=== PATIENT | female | born 1945 | race Caucasian/White ===

== ENCOUNTER 2016-09-02 07:02 | Day surgery (SDC) | payer MEDICARE, BC ==
[~2016-09-02 07:02] MED LIST: Bupivacaine 0.25% 30 ML SDV ONE; Lactated Ringers 1,000 ML IV SCH; Lidocaine 1% 30 ML SDV ONE; Lidocaine 1%/Sod Bicarbonate in NS 8.4% 1 ML Syringe PRN; Sodium Chloride 0.9% 10 ML Syringe FLUSH PRN
--- NOTE | 2016-09-02 07:23 | PCM.PREANE ---
Preanesthetic Assessment - ANESTHESIA/TRANSFUSION/FAMILY HX Anesthesia/Transfusion History: No Prior Transfusion(s), Prior Anesthesia (no problems) Family History of Anesthesia Reaction: No - REVIEW OF SYSTEMS Constitutional: Reports: no symptoms ANIMAL CYTOLOGIST: Reports: no symptoms Respiratory: Reports: no symptoms Cardiovascular: Reports: no symptoms GI: Reports: no symptoms Other: Reports: none - PHYSICAL ASSESSMENT HR: 73 O2 Sat by Pulse Oximetry: 98 RR: 16 BP: 123/65 Temp: 36.5 C Height: 1.65 m Weight: 52.617 kg NPO Status Date: 09/01/16 NPO Status Time: 00:00 ASA Class: 2 Mental Status: alert & oriented x3 Dentition: Reports: partial Thyro-Mental Finger Breadths: 3 Mouth Opening Finger Breadths: 3 ROM/Head Extension: full Respiratory Status: lungs clear to auscultation bilaterally Cardiovascular Status: regular rate & rhythm, normal S1, S2, no murmur, blood pressure WNL - ALLERGIES Allergies/Adverse Reactions: Allergies Allergy/AdvReac Type Severity Reaction Status Date / Time acetaminophen [From NyQuil] AdvReac Shaking Verified 09/01/16 16:04 amoxicillin [From Augmentin] AdvReac Nausea and Verified 09/01/16 16:04 Vomiting clavulanic acid AdvReac Nausea and Verified 09/01/16 16:04 [From Augmentin] Vomiting dextromethorphan AdvReac Shaking Verified 09/01/16 16:04 [From NyQuil] doxylamine [From NyQuil] AdvReac Shaking Verified 09/01/16 16:04 pseudoephedrine [From NyQuil] AdvReac Shaking Verified 09/01/16 16:04 - BLOOD Blood Available: No Product(s) Available: None - ANESTHESIA PLAN Preop Beta Gagandeep: No Anesthesia Type Planned: MAC - ACKNOWLEDGEMENTS Pt an appropriate candidate for the planned anesthesia: Yes Alternatives and risks of anesthesia discussed w pt/guardian: Yes Pt/Guardian understands and agree with anesthesia plan: Yes PreAnesthesia Questionnaire HEENT History: Reports: Allergic rhinitis, Impaired vision, Other (see below) Other HEENT History: wears glasses, has partials Cardiovascular History: Reports: None Respiratory History: Reports: None Gastrointestinal History: Reports: GERD Other Gastrointestinal History: Sirisha 1996 - evel. 7" Genitourinary History: Reports: None ANTENNA RIGGER History: Reports: None Musculoskeletal History: Reports: Back pain, chronic, Neck pain, chronic, Osteoarthritis Neurological History: Reports: Migraines Psychiatric History: Reports: None Endocrine/Metabolic History: Reports: None Hematologic History: Reports: None Immunologic History: Reports: None Oncologic (Cancer) History: Reports: Pancreatic - Past Surgical History Head Surgeries/Procedures: Reports: None HEENT Surgical History: Reports: Cataract surgery GI Surgical History: Reports: Appendectomy, Colonoscopy Female Surgical History: Reports: Hysterectomy Musculoskeletal Surgical History: Reports: Other (see below) Other Musculoskeletal Surgeries/Procedures:: left foot surgery with hardware, rods to back, trigger finger procedure - SUBSTANCE USE Smoking Status *Q: Former Smoker Tobacco Use Within Last Twelve Months: No Second Hand Smoke Exposure: No Recreational Drug Use History: No - HOME MEDS Home Medications: Home Meds Amylase/Lipase/Protease [Zenpep DR 10,000 Unit] 1 cap PO TID 11/13/14 [History] Omeprazole 20 mg PO BID 11/13/14 [History] SUMAtriptan Succinate [Imitrex] 1 tab PO ASDIRECTED PRN 11/14/14 [History] Cholecalciferol (Vitamin D3) [Vitamin D3] 1,000 units PO DAILY 05/12/16 [History ] Ranitidine [Zantac] 1 tab PO BEDTIME 09/01/16 [History] Hydrocodone/Acetaminophen [[place] 5-325 Tablet] 1 - 2 each PO Q6H PRN #20 tablet 09/02/16 [Rx] - CURRENT (IN HOUSE) MEDS Current Meds: Current Medications Lactated Ringer's (Ringers, Lactated) 1,000 mls @ 125 mls/hr IV ASDIRECTED CATIE Stop: 09/02/16 23:00 Lidocaine/Sodium Bicarbonate (Buffered Lidocaine 1% In Ns 8.4%) 0.25 ml .XX ONETIME PRN PRN Reason: Prior to IV Start Stop: 09/02/16 18:00 Sodium Chloride (Saline Flush) 10 ml FLUSH ASDIRECTED PRN PRN Reason: Keep Vein Open Stop: 09/02/16 18:00 Discontinued Medications Bupivacaine HCl (Marcaine 0.25%) Confirm Administered Dose 30 ml .ROUTE .STK- MED ONE Stop: 09/02/16 06:55 Lidocaine HCl (Xylocaine-Mpf 1%) Confirm Administered Dose 30 ml .ROUTE .[facility] [facility]- MED ONE Stop: 09/02/16 06:55
[2016-09-02] MEDS ORDERED: Propofol 200 MG/20 ML SDV ONE (07:34)
[2016-09-02] MEDS ORDERED: Lidocaine 1% 2 ML SDV ONE (07:34)
[2016-09-02] MEDS ORDERED: fentaNYL 100 MCG/2 ML SDV ONE (07:36)
[2016-09-02 08:47] VITALS: BP 120/63
--- NOTE | 2016-09-13 22:33 | PCM.OPNOTE ---
- General Post-Op/Procedure Note Date of Surgery/Procedure: 09/02/16 Operative Procedure(s): left long finger a1 sravan release Pre Op Diagnosis: left long finger stenosing tenosynovitis Post-Op Diagnosis: Same Anesthesia Technique: Local, MAC Primary Surgeon: Fan Henao Anesthesia Provider: Barber Dominguez Track Repair Worker: Arianna Hill EBL in mLs: 5 Complications: None Condition: Good
--- NOTE | 2016-09-13 23:08 | OR ---
DATE OF OPERATION: 09/02/2016 SURGEON: Fan Henao MD OPERATION PERFORMED: Left long finger A1 sravan release. PREOPERATIVE DIAGNOSIS: Left long finger stenosing tenosynovitis. POSTOPERATIVE DIAGNOSIS: Left long finger stenosing tenosynovitis. ANESTHESIA: Technique; local MAC. ANESTHESIA PROVIDER: Barber Dominguez CRNA LOAN SPECIALIST: Arianna Hill PA-C. ESTIMATED BLOOD LOSS: Less than 5 mL. COMPLICATIONS: None. CONDITION: Stable. DESCRIPTION OF PROCEDURE: The patient was identified in the preop holding area. Proper site was marked and identified by the surgeon. The patient was taken back to the operating theater where after adequate anesthesia, the patient's left upper extremity was sterilely prepped and draped in the usual sterile fashion. OR wide time-out was performed. Antibiotics were not indications for soft tissue hand procedure. At this time, left upper extremity was exsanguinated with Esmarch which was used as a tourniquet on the forearm. A 0.25% Marcaine and 1% lidocaine without epinephrine was then used at the incisional site over the MCP joint of the long finger left hand. Transverse incision was made. Blunt dissection was taken down to the A1 sravan. Campo blade was used for resection of the A1 rsavan, was found to be a both release proximally and distally. There was good excursion of the tendon from the wound bed with no tenolysis at this time. The patient's finger was then moved back and forth, there was no visible or audible triggering. At this time adequate saline was irrigated through the wound. A 4- 0 nylon simple suture was used for closure of the skin. The patient had a sterile soft dressing applied and sent to the PACU in stable condition. MMODAL /[id number]
== END 2016-09-02 09:21 | disposition home or self-care (01) ==
LOC: JD.SDS 07:02
PROVIDERS: ATTEND Orthopaedic Surgery
PROC: 0LN80ZZ Release Left Hand Tendon, Open Approach (ICD-10-PCS; principal; 2016-09-02)
DX: M65.842 Other synovitis and tenosynovitis, left hand (principal); M19.90 Unspecified osteoarthritis, unspecified site; K21.9 Gastro-esophageal reflux disease without esophagitis; Z88.8 Allergy status to other drugs, medicaments and biological substances; Z88.6 Allergy status to analgesic agent; Z88.0 Allergy status to penicillin; Z79.899 Other long term (current) drug therapy; Z98.49 Cataract extraction status, unspecified eye; Z90.710 Acquired absence of both cervix and uterus; Z90.49 Acquired absence of other specified parts of digestive tract; Z98.890 Other specified postprocedural states; Z87.891 Personal history of nicotine dependence
CPT/HCPCS: 26055; J3010; J7120; 01810; J2704; J3490

== ENCOUNTER 2017-04-28 06:26 | Day surgery (SDC) | payer MEDICARE, BC ==
[~2017-04-28 06:26] MED LIST changes: -Bupivacaine 0.25% 30 ML SDV ONE; -Lidocaine 1% 30 ML SDV ONE; +Lidocaine 1%/Sod Bicarbonate in NS 8.4% 1 ML Syringe IV PRN; -Lidocaine 1%/Sod Bicarbonate in NS 8.4% 1 ML Syringe PRN
[2017-04-28] MEDS ORDERED: Bupivacaine 0.25% 30 ML SDV ONE (06:50)
[2017-04-28] MEDS ORDERED: Lidocaine 1% 30 ML SDV ONE (06:50)
[2017-04-28] MEDS ORDERED: Triamcinolone Acetonide 40 MG/ML 1 ML MDV ONE (06:57)
--- NOTE | 2017-04-28 07:01 | PCM.PREANE ---
Preanesthetic Assessment - Anesthesia/Transfusion/Family Hx Anesthesia History: Prior Anesthesia Without Reaction Family History of Anesthesia Reaction: No Transfusion History: No Prior Transfusion(s) - Review of Systems General: No Symptoms Pulmonary: No Symptoms Cardiovascular: No Symptoms Gastrointestinal: No Symptoms Neurological: No Symptoms Other: Reports: Easy Bruising, Liver Problems (no pancreas) - Physical Assessment NPO Status Date: 04/27/17 NPO Status Time: 21:00 Pulse: 84 O2 Sat by Pulse Oximetry: 97 Respiratory Rate: 16 Blood Pressure: 123/76 Temperature: 98.3 F Height: 5 ft 4 in Weight: 54 kg ASA Class: 2 Mental Status: Alert & Oriented x3 Airway Class: Mallampati = 2 Dentition: Reports: Partial (glued in) Thyro-Mental Finger Breadths: 3 Mouth Opening Finger Breadths: 3 ROM/Head Extension: Full Lungs: Clear to Auscultation, Normal Respiratory Effort Cardiovascular: Regular Rate, Regular Rhythm - Allergies Allergies/Adverse Reactions: Allergies Allergy/AdvReac Type Severity Reaction Status Date / Time acetaminophen [From NyQuil] AdvReac Shaking Verified 04/27/17 13:04 amoxicillin [From Augmentin] AdvReac Nausea and Verified 04/27/17 13:04 Vomiting clavulanic acid AdvReac Nausea and Verified 04/27/17 13:04 [From Augmentin] Vomiting dextromethorphan AdvReac Shaking Verified 04/27/17 13:04 [From NyQuil] doxylamine [From NyQuil] AdvReac Shaking Verified 04/27/17 13:04 pseudoephedrine [From NyQuil] AdvReac Shaking Verified 04/27/17 13:04 - Blood Blood Available: No - Acknowledgements Anesthesia Type Planned: MAC Pt an Appropriate Candidate for the Planned Anesthesia: Yes Alternatives and Risks of Anesthesia Discussed w Pt/Guardian: Yes Pt/Guardian Understands and Agrees with Anesthesia Plan: Yes PreAnesthesia Questionnaire HEENT History: Reports: Allergic Rhinitis, Impaired Vision, Other (See Below) Other HEENT History: wears glasses, has partials, right ear impacted cerumen Cardiovascular History: Reports: None Respiratory History: Reports: None Gastrointestinal History: Reports: GERD Other Gastrointestinal History: Whipple 1996, pancreas resection Genitourinary History: Reports: None CIGARETTE LIGHTER REPAIRER History: Reports: None Musculoskeletal History: Reports: Back Pain, Chronic (none now), Neck Pain, Chronic, Osteoarthritis Neurological History: Reports: Migraines Psychiatric History: Reports: None Endocrine/Metabolic History: Reports: None Hematologic History: Reports: None Immunologic History: Reports: None Oncologic (Cancer) History: Reports: Pancreatic, Other (See Below) Other Oncologic History: ampula of vater cancer Dermatologic History: Reports: Other (See Below) Other Dermatologic History: actinic keratosis - Past Surgical History Head Surgeries/Procedures: Reports: None HEENT Surgical History: Reports: None, Cataract Surgery Cardiovascular Surgical History: Reports: None Respiratory Surgical History: Reports: None GI Surgical History: Reports: Appendectomy, Colonoscopy, Other (See Below) ( sakshi 1996) Female Surgical History: Reports: Hysterectomy Endocrine Surgical History: Reports: None Neurological Surgical History: Reports: None Musculoskeletal Surgical History: Reports: Other (See Below) Other Musculoskeletal Surgeries/Procedures:: left foot surgery with hardware, rods to back, trigger finger procedure Oncologic Surgical History: Reports: None Dermatological Surgical History: Reports: None - SUBSTANCE USE Smoking Status *Q: Former Smoker (quit 1996) Tobacco Use Within Last Twelve Months: No Second Hand Smoke Exposure: No Days Per Week of Alcohol Use: 0 Recreational Drug Use History: No - HOME MEDS Home Medications: Home Meds Amylase/Lipase/Protease [Zenpep DR 10,000 Unit] 1 cap PO TID 11/13/14 [History] Omeprazole 20 mg PO BID 11/13/14 [History] SUMAtriptan Succinate [Imitrex] 1 tab PO ASDIRECTED PRN 11/14/14 [History] Ranitidine [Zantac] 1 tab PO BEDTIME 09/01/16 [History] Ferrous Sulfate [Iron] 325 mg PO DAILY 04/27/17 [History] Multivitamin [Zoo Chews] 1 tab PO DAILY 04/27/17 [History] - CURRENT (IN HOUSE) MEDS Current Meds: Current Medications Lactated Ringer's (Ringers, Lactated) 1,000 mls @ 125 mls/hr IV ASDIRECTED CATIE Lidocaine/Sodium Bicarbonate (Buffered Lidocaine 1% In Ns 8.4%) 0.25 ml IV ONETIME PRN PRN Reason: Prior to IV Start Sodium Chloride (Saline Flush) 10 ml FLUSH ASDIRECTED PRN PRN Reason: Keep Vein Open Discontinued Medications Fentanyl (Sublimaze) Confirm Administered Dose 100 mcg .ROUTE .STK-MED ONE Stop: 04/28/17 07:07 Lidocaine HCl (Xylocaine-Mpf 1%) Confirm Administered Dose 4 mls @ as directed .ROUTE .STK-MED ONE Stop: 04/28/17 07:06 Propofol (Diprivan 20 Ml) Confirm Administered Dose 200 mg .ROUTE .STK-MED ONE Stop: 04/28/17 07:07
[2017-04-28] MEDS ORDERED: Lidocaine 1% 4 ML ONE (07:05)
[2017-04-28] MEDS ORDERED: fentaNYL 100 MCG/2 ML SDV ONE (07:06)
[2017-04-28] MEDS ORDERED: Propofol 200 MG/20 ML SDV ONE (07:06)
[2017-04-28] MEDS ORDERED: Ondansetron 4 MG/2 ML SDV IVPUSH PRN (07:20)
[2017-04-28] MEDS ORDERED: Lidocaine 1%/Sod Bicarbonate in NS 8.4% 1 ML Syringe PRN (07:27)
--- NOTE | 2017-04-28 07:56 | PCM48HPAN ---
Post Anesthesia Note - EVALUATION WITHIN 48HRS OF ANESTHETIC Vital Signs in Normal Range: Yes Patient Participated in Evaluation: Yes Respiratory Function Stable: Yes Airway Patent: Yes Cardiovascular Function Stable: Yes Hydration Status Stable: Yes Pain Control Satisfactory: Yes Nausea and Vomiting Control Satisfactory: Yes Mental Status Recovered: Yes
[2017-04-28 07:58] VITALS: BP 112/65
--- NOTE | 2017-05-09 11:38 | PCM.OPNOTE ---
- General Post-Op/Procedure Note Date of Surgery/Procedure: 04/28/17 Operative Procedure(s): left ringer finger a1 sravan release and left first carpometacarpal joint injection Pre Op Diagnosis: left ring finger stensoing tenosynovitis and left basal thumb joint arthritis Post-Op Diagnosis: Same Anesthesia Technique: Local, MAC Primary Surgeon: Fan Henao Anesthesia Provider: Tangela Torres Conveyor Attendant: Arianna Hill in mLs: 5 Complications: None Condition: Good
--- NOTE | 2017-05-09 12:40 | OR ---
DATE OF OPERATION: 04/28/2017 SURGEON: Fan Henao MD OPERATION PERFORMED: 1. Left ring finger A1 sravan release. 2. Left 1st carpometacarpal joint injection. PREOPERATIVE DIAGNOSIS: 1. Left ring finger stenosing tenosynovitis. 2. Left basal thumb joint arthritis. POSTOPERATIVE DIAGNOSIS: 1. Left ring finger stenosing tenosynovitis. 2. Left basal thumb joint arthritis. ANESTHESIA: Local MAC. ANESTHESIA PROVIDER: Tangela Torres CRNA MOLDING PROCESS TECHNICIAN: Arianna Hill PA-C. ESTIMATED BLOOD LOSS: Less than 5 mL. COMPLICATIONS: None. CONDITION: Stable. DESCRIPTION OF PROCEDURE: The patient was identified in the preop holding area. Proper site was marked and identified by the surgeon. The patient was taken back to the operating theater where, after adequate anesthesia, the patient received IV Ancef, and then the left upper extremity was sterilely prepped and draped in the usual sterile fashion. OR time-out was performed. At this time, the left upper extremity was exsanguinated with the use of an Esmarch, and Esmarch was then used on the forearm as a tourniquet. At this time, a transverse incision was made over the A1 sravan. Blunt dissection was taken down to the A1 sravan over the left ring finger after it was adequately anesthetized with 1% lidocaine without epinephrine and 0.25% Marcaine without epinephrine. Once it was identified, Ragnell retractors were placed to the radial and ulnar sides to protect the neurovascular bundles. A Benzie blade was used for resection of the A1 sravan under direct visualization, and there was noted to be fraying of the A1 sravan both proximally and distally. At this time, the tendon was brought through the wound bed. There was noted to be no adhesions to the tendon. At this time, adequate saline was irrigated through the wound. 4-0 nylon simple suture was used for closure of the skin. Next, under direct visualization, 1 mL of 40 mg Kenalog and 1 mL of 0.25% Marcaine were injected at the 1st CMC joint. The patient tolerated this procedure well as well and sent to the PACU in stable condition with a sterile soft dressing. MMODAL /[id number]
== END 2017-04-28 08:47 | disposition home or self-care (01) ==
LOC: JD.SDS 06:26
PROVIDERS: ATTEND Orthopaedic Surgery
DX: M65.342 Trigger finger, left ring finger (principal); M18.9 Osteoarthritis of first carpometacarpal joint, unspecified; K21.9 Gastro-esophageal reflux disease without esophagitis; G43.909 Migraine, unspecified, not intractable, without status migrainosus; M81.0 Age-related osteoporosis without current pathological fracture; G89.29 Other chronic pain; M54.2 Cervicalgia; M53.3 Sacrococcygeal disorders, not elsewhere classified; Z87.891 Personal history of nicotine dependence; Z85.07 Personal history of malignant neoplasm of pancreas; Z80.0 Family history of malignant neoplasm of digestive organs; Z80.3 Family history of malignant neoplasm of breast; Z88.1 Allergy status to other antibiotic agents; Z88.0 Allergy status to penicillin; Z88.8 Allergy status to other drugs, medicaments and biological substances; Z79.899 Other long term (current) drug therapy; Z90.710 Acquired absence of both cervix and uterus; Z90.410 Acquired total absence of pancreas; Z90.49 Acquired absence of other specified parts of digestive tract; Z98.890 Other specified postprocedural states
CPT/HCPCS: 20600; 26055; 36415; 80048; J3010; J3301; J3490; J7120; 01810; J2704

== ENCOUNTER 2018-07-17 06:16 | Inpatient (IN) | payer MEDICARE, BC ==
[~2018-07-17 06:16] MED LIST changes: +Acetaminophen 325 MG Tab PO ONE; -Lactated Ringers 1,000 ML IV SCH; +Lidocaine 1%/Sod Bicarbonate in NS 8.4% 1 ML Syringe IDERM PRN; -Lidocaine 1%/Sod Bicarbonate in NS 8.4% 1 ML Syringe IV PRN; +Pregabalin 25 MG Cap PO ONE; +oxyCODONE ER 10 MG TAB.ER PO ONE
[2018-07-17] MEDS ORDERED: Morphine 8 MG, EPINEPHrine 0.3 MG, Cefuroxime 750 MG, Ketorolac 30 MG, Sodium Chloride ... ONE ×5 (06:40)
[2018-07-17] MEDS ORDERED: Cyclobenzaprine 10 MG Tab PO PRN (06:40)
[2018-07-17] MEDS ORDERED: Sennosides 8.6 MG Tab PO PRN (06:41)
[2018-07-17] MEDS ORDERED: Magnesium Hydroxide 400 MG/5 ML Susp 30 ML Cup PO PRN (06:41)
[2018-07-17] MEDS ORDERED: Bisacodyl 5 MG Tab PO PRN (06:41)
[2018-07-17] MEDS ORDERED: Morphine 2 MG/ML Syringe IVPUSH PRN (06:41)
[2018-07-17] MEDS ORDERED: Naloxone 0.4 MG/ML SDV IVPUSH PRN (06:41)
[2018-07-17] MEDS: Lactated Ringers 1,000 ML IV SCH ×2 (06:50→11:05)
[2018-07-17] MEDS ORDERED: Lidocaine 1% 4 ML ONE (07:09)
[2018-07-17] MEDS ORDERED: ceFAZolin 1 GM Vial ONE (07:09)
[2018-07-17] MEDS ORDERED: Dexamethasone 4 MG/ML SDV ONE (07:09)
[2018-07-17] MEDS ORDERED: Lactated Ringers 1,000 ML ONE (07:09)
[2018-07-17] MEDS ORDERED: Midazolam 1 MG/ML 2 ML SDV ONE (07:10)
[2018-07-17] MEDS ORDERED: Propofol 200 MG/20 ML SDV ONE (07:10)
[2018-07-17] MEDS ORDERED: fentaNYL 250 MCG/5 ML SDV ONE (07:10)
[2018-07-17] MEDS ORDERED: Lidocaine 1% 2 ML ONE (07:16)
[2018-07-17] MEDS ORDERED: Ropivacaine 0.5% 5 MG/ML 30 ML SDV ONE (07:18)
[2018-07-17] MEDS ORDERED: EPINEPHrine 1 MG/ML SDV ONE (07:18)
[2018-07-17] MEDS: Iodine/Sodium Iodide 2% Tincture 30 ML Bottle ONE ×2 (08:46→09:27)
[2018-07-17] MEDS: ceFAZolin 1 GM Vial ONE ×2 (08:47→09:30)
[2018-07-17] MEDS: Vancomycin 1 GM SDV ONE ×2 (08:49→09:33)
[2018-07-17] MEDS ORDERED: ePHEDrine/Normal Saline 25 MG/5 ML Syringe ONE (09:05)
[2018-07-17] MEDS ORDERED: Phenylephrine/Normal Saline 100 MCG/ML 10 ML Syringe ONE (09:05)
--- NOTE | 2018-07-17 09:18 | PCM.PREANE ---
Preanesthetic Assessment - Anesthesia/Transfusion/Family Hx Anesthesia History: Prior Anesthesia Reaction Type of Anesthesia Reaction: Other (see below) (Post operative migraines) Family History of Anesthesia Reaction: No Transfusion History: No Prior Transfusion(s) - Review of Systems General: No Symptoms Pulmonary: No Symptoms Cardiovascular: No Symptoms Gastrointestinal: Other (GERD, controlled with her medicaitons. No sympotoms today. ) Neurological: Headache (Migraines, triggered by surgery in the past. ) Other: Reports: None - Physical Assessment NPO Status Date: 07/16/18 NPO Status Time: 21:00 O2 Sat by Pulse Oximetry: 97 Respiratory Rate: 16 Vital Signs: Last Vital Signs Temp 36.4 C 07/17/18 06:30 Pulse 75 07/17/18 06:30 Resp 16 07/17/18 06:30 BP 127/75 07/17/18 06:30 Pulse Ox 97 07/17/18 06:30 Height: 1.63 m Weight: 52.163 kg ASA Class: 2 Mental Status: Alert & Oriented x3 Airway Class: Mallampati = 1 Dentition: Reports: Partial (Upper and lower), Caries Thyro-Mental Finger Breadths: 3 Mouth Opening Finger Breadths: 3 ROM/Head Extension: Full Lungs: Clear to Auscultation, Normal Respiratory Effort Cardiovascular: Regular Rate, Regular Rhythm - Allergies Allergies/Adverse Reactions: Allergies Allergy/AdvReac Type Severity Reaction Status Date / Time amoxicillin [From Augmentin] AdvReac Nausea and Verified 07/14/18 15:09 Vomiting clavulanic acid AdvReac Nausea and Verified 07/14/18 15:09 [From Augmentin] Vomiting - Acknowledgements Anesthesia Type Planned: General Anesthesia, Regional Block Pt an Appropriate Candidate for the Planned Anesthesia: Yes Alternatives and Risks of Anesthesia Discussed w Pt/Guardian: Yes Pt/Guardian Understands and Agrees with Anesthesia Plan: Yes PreAnesthesia Questionnaire HEENT History: Reports: Allergic Rhinitis, Impaired Vision, Other (See Below) Other HEENT History: wears glasses, has partials Cardiovascular History: Reports: None Respiratory History: Reports: None Gastrointestinal History: Reports: GERD Other Gastrointestinal 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 Genitourinary History: Reports: None APPLICATIONS SUPPORT LEAD History: Reports: None Musculoskeletal History: Reports: Back Pain, Chronic, Neck Pain, Chronic, Osteoarthritis, Osteoporosis Neurological History: Reports: Migraines Psychiatric History: Reports: None Endocrine/Metabolic History: Reports: None, Other (See Below) Other Endocrine/Metabolic History: hypoglycemia Hematologic History: Reports: None Immunologic History: Reports: None Oncologic (Cancer) History: Reports: Pancreatic Other Oncologic History: ampula of vater cancer Dermatologic History: Reports: Other (See Below) Other Dermatologic History: actinic keratosis - Past Surgical History Head Surgeries/Procedures: Reports: None HEENT Surgical History: Reports: Cataract Surgery Cardiovascular Surgical History: Reports: None Respiratory Surgical History: Reports: None GI Surgical History: Reports: Appendectomy, Colonoscopy, EGD, Other (See Below) Female Surgical History: Reports: Hysterectomy Male Surgical History: Reports: None Endocrine Surgical History: Reports: None Neurological Surgical History: Reports: Thoracic Spine Musculoskeletal Surgical History: Reports: Other (See Below) Other Musculoskeletal Surgeries/Procedures:: left foot surgery with hardware, rods to back, trigger finger procedure Oncologic Surgical History: Reports: None Dermatological Surgical History: Reports: None - SUBSTANCE USE Smoking Status *Q: Former Smoker Second Hand Smoke Exposure: No Recreational Drug Use History: No - HOME MEDS Home Medications: Home Meds Amylase/Lipase/Protease [Zenpep DR 10,000 Unit] 10,000 unit PO TID 11/13/14 [ History] Omeprazole 20 mg PO BID 11/13/14 [History] SUMAtriptan Succinate [Imitrex] 1 tab PO ASDIRECTED PRN 11/14/14 [History] Ferrous Sulfate [Iron] 325 mg PO DAILY 04/27/17 [History] Multivitamin [Zoo Chews] 1 tab PO DAILY 04/27/17 [History] Calcium Carbonate/Vitamin D3 [Calcium 600 + Vit D 200] 1 tab PO DAILY 07/14/18 [ History] Cholecalciferol (Vitamin D3) [Vitamin D3] 5,000 unit PO DAILY 07/14/18 [History] - CURRENT (IN HOUSE) MEDS Current Meds: Current Medications Hydrocodone Bitart/Acetaminophen ([place] 325-5 Mg) 1 - 2 tab PO Q4H PRN PRN Reason: Pain Aspirin (Ecotrin) 325 mg PO DAILY [facility]IE Bisacodyl (Dulcolax) 5 mg PO DAILY PRN PRN Reason: Constipation Cyclobenzaprine HCl (Flexeril) 10 mg PO TID PRN PRN Reason: Spasms Docusate Sodium (Colace) 100 mg PO BID [facility] Lactated Ringer's (Ringers, Lactated) 1,000 mls @ 125 mls/hr IV ASDIRECTED [facility] Last Admin: 07/17/18 06:50 Dose: 125 mls/hr Cefazolin Sodium/Dextrose 2 gm (/ Premix) 50 mls @ 100 mls/hr IV Q8H [facility] Stop: 07/18/18 07:44 Ketorolac Tromethamine (Toradol) 15 mg IVPUSH Q6H PRN PRN Reason: Pain Lidocaine/Sodium Bicarbonate (Buffered Lidocaine 1% In Ns 8.4%) 0.25 ml IDERM ONETIME PRN PRN Reason: Prior to IV Start Last Admin: 07/17/18 06:50 Dose: 0.25 ml Magnesium Hydroxide (Milk Of Magnesia) 30 ml PO BID PRN PRN Reason: Constipation Morphine Sulfate (Morphine) 2 mg IVPUSH Q2H PRN PRN Reason: Breakthrough Pain Naloxone HCl (Narcan) 0.1 mg IVPUSH Q5M PRN PRN Reason: Oversedation Ondansetron HCl (Zofran) 4 mg IVPUSH Q6H PRN PRN Reason: Nausea/Vomiting Senna (Senna) 8.6 mg PO BID PRN PRN Reason: Constipation Sodium Chloride (Saline Flush) 10 ml FLUSH ASDIRECTED PRN PRN Reason: Keep Vein Open Discontinued Medications Acetaminophen (Tylenol) 975 mg PO ONETIME ONE Stop: 07/17/18 06:01 Last Admin: 07/17/18 06:55 Dose: 975 mg Cefazolin Sodium (Ancef) Confirm Administered Dose 2 gm .ROUTE .STK-MED ONE Stop: 07/17/18 07:07 Last Admin: 07/17/18 08:47 Dose: 2 gm Cefazolin Sodium (Ancef) Confirm Administered Dose 2 gm .ROUTE .STK-MED ONE Stop: 07/17/18 07:10 Morphine Sulfate 8 mg/Epinephrine HCl 0.3 mg/Cefuroxime Sodium 750 mg/Ketorolac Tromethamine 30 mg/Sodium Chloride 27.9 ml 0 mg .XX ONETIME ONE Stop: 07/17/18 06:41 Dexamethasone (Dexamethasone) Confirm Administered Dose 4 mg .ROUTE .STK-MED ONE Stop: 07/17/18 07:10 Ephedrine Sulfate (Ephedrine In Ns) Confirm Administered Dose 25 mg .ROUTE .STK- MED ONE Stop: 07/17/18 09:06 Epinephrine HCl (Adrenalin) Confirm Administered Dose 1 mg .ROUTE .STK-MED ONE Stop: 07/17/18 07:19 Fentanyl (Sublimaze) Confirm Administered Dose 250 mcg .ROUTE .ST-MED ONE Stop: 07/17/18 07:11 Lidocaine HCl (Xylocaine-Mpf 1%) Confirm Administered Dose 4 mls @ as directed .ROUTE .ST-MED ONE Stop: 07/17/18 07:10 Lactated Ringer's (Ringers, Lactated) Confirm Administered Dose 1,000 mls @ as directed .ROUTE .ST-MED ONE Stop: 07/17/18 07:10 Lidocaine HCl (Xylocaine-Mpf 1%) Confirm Administered Dose 2 mls @ as directed .ROUTE .ST-MED ONE Stop: 07/17/18 07:17 Iodine (Iodine 2% Mild Tincture) Confirm Administered Dose 30 ml .ROUTE .ST- MED ONE Stop: 07/17/18 07:07 Last Admin: 07/17/18 08:46 Dose: 18 ml Midazolam HCl (Versed 1 Mg/Ml) Confirm Administered Dose 2 mg .ROUTE .ST-MED ONE Stop: 07/17/18 07:11 Oxycodone HCl (Oxycontin) 10 mg PO ONETIME ONE Stop: 07/17/18 06:01 Last Admin: 07/17/18 06:55 Dose: 10 mg Phenylephrine HCl (Phenylephrine In Ns 100 Mcg/Ml) Confirm Administered Dose 2 mg .ROUTE .ST-MED ONE Stop: 07/17/18 09:06 Pregabalin (Lyrica) 50 mg PO ONETIME ONE Stop: 07/17/18 06:01 Last Admin: 07/17/18 06:56 Dose: 50 mg Propofol (Diprivan 20 Ml) Confirm Administered Dose 400 mg .ROUTE .STK-MED ONE Stop: 07/17/18 07:11 Ropivacaine (Naropin 0.5%) Confirm Administered Dose 30 ml .ROUTE .STK-MED ONE Stop: 07/17/18 07:19 Tranexamic Acid (Cyklokapron) Confirm Administered Dose 1,000 mg .ROUTE .STK- MED ONE Stop: 07/17/18 07:07 Last Admin: 07/17/18 08:47 Dose: 1,000 mg Vancomycin HCl (Vancomycin) Confirm Administered Dose 1 gm .ROUTE .[facility]-MED ONE Stop: 07/17/18 07:07 Last Admin: 07/17/18 08:49 Dose: 1 gm
--- NOTE | 2018-07-17 09:24 | PCM.SN ---
- Free Text/Narrative Note: Anesthesia Procedure Note: (Interscalene Block Note) Date: 07/17/2018 Time Out: 737 Start: 737 Stop: 753 Surgical Procedure: Right Shoulder Reverse Total Diagnosis: Right Shoulder Osteoarthritis Current Procedure: Right Interscalene Block under US guidance for postoperative pain control requested Patient chart reviewed, risk/benefits discussed with patient, consent obtained. Patient positioned supine, monitors/alarms on, oxygen placed via nasal cannula at 2 LPM. IV sedation administered see nursing notes. Monitors applied (EKG, NIBP, SpO2) alarms on. Nasal Cannula on at 2L/min. Right shoulder prepped with two chloropreps. Sterile drapes placed with aseptic technique noted. Under US guidance right subclavian artery visualized along with the right brachial plexus. Plexus followed up to C6 cricoid level, and area localized with 1mls of 1% lidocaine. 22gauge 2 inch stimiplex needle advanced under US with 0.6mV with stimulation of biceps noted. Good stimulation noted with decreased voltage and absent at 0.4mVs. 1ml of Normal Saline injected with loss of stimulation noted to confirm needle not placed intraneurally. Incremental dosing of 5mls with negative aspiration noted prior to each injection of 0.5% ropivacaine with 1:200,000 epinephrine. Total volume=25mls of note patient is 51 kg. Janel tolerated the procedure well. No complications were noted. Vital signs stable throughout the procedure. Janel verbalized pain subsiding in shoulder with limited movement noted at completion. See Nursing Notes for vital signs. Vital signs stable throughout. Patrick Zhao CRNA
[2018-07-17] MEDS ORDERED: SUMATRIPTAN SUCCINATE PO PRN (09:56)
--- NOTE | 2018-07-17 10:16 | PCM.POSTAN ---
POST ANESTHESIA ASSESSMENT - MENTAL STATUS Mental Status: Oriented (Drowsy) - VITAL SIGNS Pulse Rate: 83 SaO2: 97 Resp Rate: 14 Blood Pressure: 123/62 Temperature: 36.4 C - RESPIRATORY Respiratory Status: Respiratory Rate WNL, Airway Patent, O2 Saturation Stable, Supplemental Oxygen - CARDIOVASCULAR CV Status: Pulse Rate WNL, Blood Pressure Stable - GASTROINTESTINAL GI Status: No Symptoms - PAIN Pain Score: 0 - POST OP HYDRATION Hydration Status: Adequate & Stable
--- NOTE | 2018-07-17 11:43 | CR ---
Right shoulder: Single AP view of the right shoulder was obtained. Comparison: Prior operative study performed on the same day. Right shoulder prosthesis is seen. Components are aligned. Underlying bony structures are intact. Mild soft tissue air is seen. Impression: 1. Satisfactory radiographic appearance of recently placed right shoulder prosthesis. Diagnostic code #2
--- NOTE | 2018-07-17 11:43 | CR ---
Right shoulder: Two fluoroscopic spot views utilizing C-arm device were obtained of the right shoulder. Study is a procedural exam showing placement of right shoulder prosthesis of the reverse type. Underlying bony structures are intact. Fluoroscopy time given as 1.9 seconds. Impression: 1. Procedural exam. Diagnostic code #2
[2018-07-17] MEDS: Ondansetron 4 MG/2 ML SDV IVPUSH PRN (12:25)
[2018-07-17] MEDS: Acetaminophen/HYDROcodone 325-5 MG Tab PO PRN ×2 (12:26→20:06)
[2018-07-17] MEDS ORDERED: Scopolamine 1.5 MG Transdermal Patch TRDERM PRN (12:44)
[2018-07-17] MEDS: ceFAZolin 2 GM in Premix Bag 1 BAG IV SCH (14:36)
[2018-07-17] MEDS ORDERED: PROTEASE PO SCH (15:00)
[2018-07-17] MEDS ORDERED: LIPASE PO SCH (15:00)
[2018-07-17] MEDS ORDERED: AMYLASE PO SCH (15:00)
[2018-07-17] MEDS: AMYLASE PO SCH (17:25)
[2018-07-17] MEDS: PROTEASE PO SCH (17:25)
[2018-07-17] MEDS: LIPASE PO SCH (17:25)
--- NOTE | 2018-07-17 18:44 | PCM.CONS ---
H&P History of Present Illness - General Date of Service: 07/17/18 Admit Problem/Dx: Admission Diagnosis/Problem Admission Diagnosis/Problem Osteoarthritis of right shoulder Source of Information: Patient, Provider History Limitations: Reports: No Limitations - History of Present Illness Initial Comments - Free Text/Narative: Janel is a 72 yo female patient of Dr. Henao who is post-operative day 0 of R Reverse TSA. Hospital medicine was consulted for post-operative medical care. At this time she is stable. Pain is controlled. She is having some nausea and vomiting. Antiemetics have been given with relief. She denies any chest pain, shortness of breath, or palpitations. She carries a history of: Migrane w/ anesthesia, GERD, Ampulla of vater CA, Osteoporosis, OA, S/p Whipple, h/o C spine surgery, Hypoproteinemia. She has never smoked. She is a full code. Her PCP is Dr. Melody Benson. Right Shoulder Pain Score (Numeric/FACES): 4 - Related Data Allergies/Adverse Reactions: Allergies Allergy/AdvReac Type Severity Reaction Status Date / Time amoxicillin [From Augmentin] AdvReac Nausea and Verified 07/14/18 15:09 Vomiting clavulanic acid AdvReac Nausea and Verified 07/14/18 15:09 [From Augmentin] Vomiting Home Medications: Home Meds Amylase/Lipase/Protease [Zenpep DR 10,000 Unit] 1 cap PO TIDMEALS 11/13/14 [ History] Omeprazole 20 mg PO 0700,1700 11/13/14 [History] SUMAtriptan Succinate [Imitrex] 1 tab PO DAILY PRN 11/14/14 [History] Ferrous Sulfate [Iron] 325 mg PO DAILY 04/27/17 [History] Calcium Carbonate/Vitamin D3 [Calcium 600 + Vit D 200] 1 tab PO DAILY 07/14/18 [ History] Cholecalciferol (Vitamin D3) [Vitamin D3] 5,000 unit PO DAILY 07/14/18 [History] Acetaminophen/HYDROcodone [[place] 325-5 MG] 1 - 2 tab PO Q6H PRN #60 tablet 07/17 [Rx] Aspirin [Ecotrin] 325 mg PO DAILY #40 tab.ec 07/17/18 [Rx] Bisacodyl [Dulcolax] 5 mg PO DAILY PRN tablet 07/17/18 [Rx] Docusate Sodium [Colace] 100 mg PO BID cap 07/17/18 [Rx] Magnesium Hydroxide [Milk of Magnesia] 30 ml PO BID PRN cup 07/17/18 [Rx] Remove Patch 1 ea TRDERM Q72H each 07/17/18 [Rx] Sennosides [Senna] 8.6 mg PO BID PRN tablet 07/17/18 [Rx] Past Medical History HEENT History: Reports: Allergic Rhinitis, Impaired Vision, Other (See Below) Other HEENT History: wears glasses, has partials Cardiovascular History: Reports: None Respiratory History: Reports: Bronchitis, Recurrent Gastrointestinal History: Reports: GERD Other Gastrointestinal 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 Genitourinary History: Reports: None [employer] History: Reports: Other OB/BYN History: Hysterectomy - 1975 Musculoskeletal History: Reports: Back Pain, Chronic, Fracture, Neck Pain, Chronic, Osteoarthritis, Osteoporosis Other Musculoskeletal History: Left knee fracture no sx, fx right ankle Neurological History: Reports: Migraines Psychiatric History: Reports: None Endocrine/Metabolic History: Reports: Vitamin D Deficiency Other Endocrine/Metabolic History: hypoglycemia Hematologic History: Reports: Anemia, Iron Deficiency Immunologic History: Reports: None Oncologic (Cancer) History: Reports: Pancreatic Other Oncologic History: ampula of vater cancer Dermatologic History: Reports: Other (See Below) Other Dermatologic History: actinic keratosis - Infectious Disease History Infectious Disease History: Reports: Chicken Pox, Measles, Mumps - Past Surgical History Head Surgeries/Procedures: Reports: None HEENT Surgical History: Reports: Cataract Surgery Other HEENT Surgeries/Procedures: Eye lid lift. Cardiovascular Surgical History: Reports: None Respiratory Surgical History: Reports: None GI Surgical History: Reports: Appendectomy, Cholecystectomy, Colonoscopy, EGD, Other (See Below) Other GI Surgeries/Procedures: Whipple procedure in [place] - 1996 Female Surgical History: Reports: Hysterectomy Endocrine Surgical History: Reports: None Neurological Surgical History: Reports: Thoracic Spine Musculoskeletal Surgical History: Reports: Other (See Below) Other Musculoskeletal Surgeries/Procedures:: left foot surgery with hardware, rods to back, trigger finger procedure x3 Oncologic Surgical History: Reports: None Dermatological Surgical History: Reports: None Social & Family History - Family History HEENT: Reports: Cataract, Impaired Vision, Macular Degeneration Cardiac: Reports: Hypertension Other Cardiac Family History: Nitroglycerin taken by father. unsure why. : Reports: UTI, Recurrent Other Endocrine/Metabolic Family History: grandmother DM unknown Oncologic: Reports: Bone, Breast, Colon, Prostate Other Oncologic Family History: patient states "lots" - Tobacco Use Smoking Status *Q: Former Smoker Years of Tobacco use: 30 Used Tobacco, but Quit: Yes Month/Year Tobacco Last Used: 02/1997 Second Hand Smoke Exposure: No - Caffeine Use Caffeine Use: Reports: Coffee - Recreational Drug Use Recreational Drug Use: No H&P Review of Systems - Review of Systems: Review Of Systems: See Below General: Reports: No Symptoms. Denies: Fever, Chills HEENT: Reports: No Symptoms Pulmonary: Reports: No Symptoms. Denies: Shortness of Breath, Cough Cardiovascular: Reports: No Symptoms. Denies: Chest Pain, Blood Pressure Problem Gastrointestinal: Reports: Nausea, Vomiting. Denies: Abdominal Pain, Diarrhea Genitourinary: Reports: No Symptoms Musculoskeletal: Reports: No Symptoms Skin: Reports: No Symptoms Psychiatric: Reports: No Symptoms Neurological: Reports: No Symptoms Hematologic/Lymphatic: Reports: No Symptoms Immunologic: Reports: No Symptoms Exam - Exam Exam: See Below - Vital Signs Vital Signs: Last Vital Signs Temp 97.9 F 07/17/18 16:18 Pulse 66 07/17/18 16:21 Resp 17 07/17/18 16:18 BP 122/68 07/17/18 16:21 Pulse Ox 100 07/17/18 16:21 Weight: 121 lb 6.4 oz - Exam Quality Assessment: DVT Prophylaxis General: Alert, Oriented, Cooperative, Mild Distress HEENT: Conjunctiva Clear, EACs Clear, EOMI, Hearing Intact, Mucosa Moist & [place] , Nares Patent, Normal Nasal Septum, Posterior Pharynx Clear, PERRLA Neck: Supple, Trachea Midline, 2 Lungs: Clear to Auscultation, Normal Respiratory Effort Cardiovascular: Regular Rate, Regular Rhythm GI/Abdominal Exam: Normal Bowel Sounds, Soft, Non-Tender, No Organomegaly, No Distention, No Abnormal Bruit, No Mass, Pelvis Stable (Female) Exam: Deferred Rectal (Female) Exam: Deferred Back Exam: Normal Inspection Extremities: Normal Inspection, Non-Tender, No Pedal Edema, Normal Capillary Refill, Limited Range of Motion (s/p R reverse TSA) Peripheral Pulses: 3+: Radial (L), Radial (R), Posterior Tibial (L), Posterior Tibial (R), Dorsalis Pedis (L), Dorsalis Pedis (R) Skin: Warm, Dry, Intact, Other (bandage dry and intact) Neurological: Cranial Nerves Intact (grossly) Psychiatric: Alert, Normal Affect, Normal Mood Consult PN Assessment/Plan POD#: 0 Procedures: Procedures CATARACT SURG W/IOL 1 STAGE (11/14/14) DRAIN/INJ JOINT/BURSA W/O US (04/28/17) INCISE FINGER TENDON SHEATH (04/28/17) MEDICAL NUTRITION INDIV IN (07/12/18) METABOLIC PANEL TOTAL CA (04/28/17) MR-STAPH DNA AMP PROBE (06/28/18) ROUTINE VENIPUNCTURE (04/28/17) (1) Status post total shoulder arthroplasty SNOMED Code(s): 729892308, 919564186 Code(s): Z96.619 - PRESENCE OF UNSPECIFIED ARTIFICIAL SHOULDER JOINT Priority: High Current Visit: Yes Comment: Reverse TSA Qualifiers: Laterality: right Qualified Code(s): Z96.611 - Presence of right artificial shoulder joint Problem List Initiated/Reviewed/Updated: Yes Plan: I/P: Acute: S/P right total reverse shoulder arthroplasty - post-operative day 0 -DVT prophylaxis and pain management per primary care team -PT/OT -IS/RT -Monitor oxygen saturation -Titrate oxygen as needed -Vital signs stable -Monitor labs -Hgb 12.6 -GFR 68 Osteoarthritis of shoulder -Pain management per primary care team Chronic: Migrane w/ anesthesia GERD Ampulla of vater CA Osteoporosis OA S/p Whipple h/o C spine surgery Hypoproteinemia Plan: CM for discharge planning GI prophylaxis: Protonix DVT/PE prophylaxis: ASA, BRENDEN hose, SCDs Home medications as indicated Other orders as listed above Routine AM labs She is a full code. Thank you for allowing us to participate in the care of this patient!
[2018-07-17] MEDS: Pantoprazole 40 MG Tab.CR PO SCH (20:06)
[2018-07-17] MEDS: Docusate Sodium 100 MG Cap PO SCH (20:06)
--- NOTE | 2018-07-17 21:50 | PCM.OPNOTE ---
- General Post-Op/Procedure Note Date of Surgery/Procedure: 07/17/18 Operative Procedure(s): right reverse total shoulder arthroplasty Pre Op Diagnosis: right shoulder rotator cuff tear arthropathy Post-Op Diagnosis: Same Anesthesia Technique: General ET Tube, Regional Block Primary Surgeon: Fan Henao Anesthesia Provider: Yisel Zhao Paving Block Cutter: Arianna Hill Paving Block Cutter: Ruma Larson EBL in mLs: 80 Complications: None Condition: Good Free Text/Narrative:: Intake & Output 07/17/18 07/17/18 07/17/18 06:59 14:59 22:59 Intake Total 125 1500 Output Total 900 Balance 125 600 size 7 stem +6mm poly small base plate 36+0 glenosphere
[2018-07-18] MEDS: Ondansetron 4 MG/2 ML SDV IVPUSH PRN (00:10)
[2018-07-18] MEDS: Ketorolac 15 MG/ML SDV IVPUSH PRN ×2 (00:14→09:03)
[2018-07-18] MEDS: ceFAZolin 2 GM in Premix Bag 1 BAG IV SCH ×2 (00:19→06:44)
[2018-07-18] MEDS: PROTEASE PO SCH ×2 (06:08→11:52)
[2018-07-18] MEDS: AMYLASE PO SCH ×2 (06:08→11:52)
[2018-07-18] MEDS: LIPASE PO SCH ×2 (06:08→11:52)
--- NOTE | 2018-07-18 06:21 | PCM.CONSN ---
- General Info Date of Service: 07/18/18 Admission Dx/Problem (Free Text): Admission Diagnosis/Problem Admission Diagnosis/Problem Osteoarthritis of right shoulder Functional Status: Reports: Pain Controlled, Tolerating Diet, Ambulating, Urinating, Incentive Spirometry. Denies: New Symptoms - Review of Systems General: Reports: No Symptoms. Denies: Fever, Weakness, Fatigue, Malaise, Chills HEENT: Reports: No Symptoms. Denies: Headaches, Sore Throat Pulmonary: Reports: No Symptoms. Denies: Shortness of Breath, Cough, Sputum, Wheezing Cardiovascular: Reports: No Symptoms. Denies: Chest Pain, Palpitations, Dyspnea on Exertion, Edema, Lightheadedness Gastrointestinal: Reports: No Symptoms. Denies: Abdominal Pain, Constipation, Diarrhea, Nausea (none currently but has been having nausea after norco pills overnight ), Vomiting Genitourinary: Reports: No Symptoms. Denies: Pain Musculoskeletal: Reports: Shoulder Pain Skin: Reports: No Symptoms Neurological: Reports: No Symptoms. Denies: Confusion, Headache, Pre-Existing Deficit, Trouble Speaking, Difficulty Walking, Weakness, Gait Disturbance Psychiatric: Reports: No Symptoms - Patient Data Vitals - Most Recent: Last Vital Signs Temp 98.1 F 07/18/18 05:54 Pulse 84 07/18/18 05:54 Resp 16 07/18/18 05:54 BP 112/53 L 07/18/18 05:54 Pulse Ox 88 L 07/18/18 05:54 Weight - Most Recent: 121 lb 6.4 oz I&O - Last 24 Hours: Intake & Output 07/17/18 07/17/18 07/18/18 14:59 22:59 06:59 Intake Total 125 1500 100 Output Total 900 150 Balance 125 600 -50 Med Orders - Current: Current Medications Hydrocodone Bitart/Acetaminophen ([place] 325-5 Mg) 1 - 2 tab PO Q4H PRN PRN Reason: Pain Last Admin: 07/17/18 20:06 Dose: 2 tab Aspirin (Ecotrin) 325 mg PO DAILY CATIE Bisacodyl (Dulcolax) 5 mg PO DAILY PRN PRN Reason: Constipation Calcium Carbonate (Calcium Carbonate/Vitamin D 600 Mg-200 Unit) 1 tab PO DAILY CATIE Cholecalciferol (Vitamin D3) 5,000 unit PO DAILY CATIE Cyclobenzaprine HCl (Flexeril) 10 mg PO TID PRN PRN Reason: Spasms Last Admin: 07/17/18 14:35 Dose: 10 mg Docusate Sodium (Colace) 100 mg PO BID [facility] Last Admin: 07/17/18 20:06 Dose: 100 mg Ferrous Sulfate (Ferrous Sulfate) 325 mg PO DAILY [facility] Cefazolin Sodium/Dextrose 2 gm (/ Premix) 50 mls @ 100 mls/hr IV Q8H [facility] Stop: 07/18/18 07:44 Last Admin: 07/18/18 00:19 Dose: 100 mls/hr Ketorolac Tromethamine (Toradol) 15 mg IVPUSH Q6H PRN PRN Reason: Pain Last Admin: 07/18/18 00:14 Dose: 15 mg Magnesium Hydroxide (Milk Of Magnesia) 30 ml PO BID PRN PRN Reason: Constipation Miscellaneous Information (Remove Patch) 1 ea TRDERM Q72H [facility] Morphine Sulfate (Morphine) 2 mg IVPUSH Q2H PRN PRN Reason: Breakthrough Pain Multivitamins (Thera) 1 each PO DAILY [facility] Naloxone HCl (Narcan) 0.1 mg IVPUSH Q5M PRN PRN Reason: Oversedation Ondansetron HCl (Zofran) 4 mg IVPUSH Q6H PRN PRN Reason: Nausea/Vomiting Last Admin: 07/18/18 00:10 Dose: 4 mg Pantoprazole Sodium (Protonix) 40 mg PO BID [facility] Last Admin: 07/17/18 20:06 Dose: 40 mg Amylase/Lipase/Protease 20,000 Unit Cap 0 each PO TIDMEALS [facility] Last Admin: 07/18/18 06:08 Dose: 1 each Scopolamine (Transderm-Scop) 1.5 mg TRDERM Q72H PRN PRN Reason: vomiting Last Admin: 07/17/18 12:56 Dose: 1.5 mg Senna (Senna) 8.6 mg PO BID PRN PRN Reason: Constipation Sodium Chloride (Saline Flush) 10 ml FLUSH ASDIRECTED PRN PRN Reason: Keep Vein Open Discontinued Medications Acetaminophen (Tylenol) 975 mg PO ONETIME ONE Stop: 07/17/18 06:01 Last Admin: 07/17/18 06:55 Dose: 975 mg Cefazolin Sodium (Ancef) Confirm Administered Dose 2 gm .ROUTE .STK-MED ONE Stop: 07/17/18 07:07 Last Admin: 07/17/18 09:30 Dose: 2 gm Cefazolin Sodium (Ancef) Confirm Administered Dose 2 gm .ROUTE .STK-MED ONE Stop: 07/17/18 07:10 Morphine Sulfate 8 mg/Epinephrine HCl 0.3 mg/Cefuroxime Sodium 750 mg/Ketorolac Tromethamine 30 mg/Sodium Chloride 27.9 ml 0 mg .XX ONETIME ONE Stop: 07/17/18 06:41 Last Admin: 07/17/18 18:58 Dose: Not Given Dexamethasone (Dexamethasone) Confirm Administered Dose 4 mg .ROUTE .ST-MED ONE Stop: 07/17/18 07:10 Ephedrine Sulfate (Ephedrine In Ns) Confirm Administered Dose 25 mg .ROUTE .ST- MED ONE Stop: 07/17/18 09:06 Epinephrine HCl (Adrenalin) Confirm Administered Dose 1 mg .ROUTE .RUST-MED ONE Stop: 07/17/18 07:19 Fentanyl (Sublimaze) Confirm Administered Dose 250 mcg .ROUTE .ST-MED ONE Stop: 07/17/18 07:11 Lactated Ringer's (Ringers, Lactated) 1,000 mls @ 125 mls/hr IV ASDIRECTED CATIE Last Admin: 07/17/18 11:05 Dose: 125 mls/hr Lidocaine HCl (Xylocaine-Mpf 1%) Confirm Administered Dose 4 mls @ as directed .ROUTE .ST-MED ONE Stop: 07/17/18 07:10 Lactated Ringer's (Ringers, Lactated) Confirm Administered Dose 1,000 mls @ as directed .ROUTE .ST-MED ONE Stop: 07/17/18 07:10 Lidocaine HCl (Xylocaine-Mpf 1%) Confirm Administered Dose 2 mls @ as directed .ROUTE .ST-MED ONE Stop: 07/17/18 07:17 Iodine (Iodine 2% Mild Tincture) Confirm Administered Dose 30 ml .ROUTE .STK- MED ONE Stop: 07/17/18 07:07 Last Admin: 07/17/18 09:27 Dose: 18 ml Lidocaine/Sodium Bicarbonate (Buffered Lidocaine 1% In Ns 8.4%) 0.25 ml IDERM ONETIME PRN PRN Reason: Prior to IV Start Last Admin: 07/17/18 06:50 Dose: 0.25 ml Midazolam HCl (Versed 1 Mg/Ml) Confirm Administered Dose 2 mg .ROUTE .STK-MED ONE Stop: 07/17/18 07:11 Non-Formulary Medication (Sumatriptan Succinate [Imitrex]) 1 tab PO ASDIRECTED PRN PRN Reason: Headache Oxycodone HCl (Oxycontin) 10 mg PO ONETIME ONE Stop: 07/17/18 06:01 Last Admin: 07/17/18 06:55 Dose: 10 mg Amylase/Lipase/ (Protease 10,000 Unit) 0 each PO TID CATIE Last Admin: 07/17/18 18:59 Dose: Not Given Phenylephrine HCl (Phenylephrine In Ns 100 Mcg/Ml) Confirm Administered Dose 2 mg .ROUTE .STK-MED ONE Stop: 07/17/18 09:06 Pregabalin (Lyrica) 50 mg PO ONETIME ONE Stop: 07/17/18 06:01 Last Admin: 07/17/18 06:56 Dose: 50 mg Propofol (Diprivan 20 Ml) Confirm Administered Dose 400 mg .ROUTE .STK-MED ONE Stop: 07/17/18 07:11 Ropivacaine (Naropin 0.5%) Confirm Administered Dose 30 ml .ROUTE .STK-MED ONE Stop: 07/17/18 07:19 Tranexamic Acid (Cyklokapron) Confirm Administered Dose 1,000 mg .ROUTE .STK- MED ONE Stop: 07/17/18 07:07 Last Admin: 07/17/18 09:33 Dose: 1,000 mg Vancomycin HCl (Vancomycin) Confirm Administered Dose 1 gm .ROUTE .STK-MED ONE Stop: 07/17/18 07:07 Last Admin: 07/17/18 09:33 Dose: 1 gm - Exam Quality Assessment: DVT Prophylaxis General: Alert, Oriented, Cooperative, No Acute Distress HEENT: Pupils Equal, Pupils Reactive, EOMI, Mucous Membr. Moist/[place] Neck: Supple, Trachea Midline, No JVD Lungs: Clear to Auscultation, Normal Respiratory Effort Cardiovascular: Regular Rate, Regular Rhythm GI/Abdominal Exam: Normal Bowel Sounds, Soft, Non-Tender, No Distention, No Abnormal Bruit (Female) Exam: Deferred Back Exam: Normal Inspection, Full Range of Motion Extremities: No Pedal Edema, Normal Capillary Refill, Arm Pain (right shoulder pain ), Limited Range of Motion, Other (Bandage in place on right shoulder. Cooling pack in place. ) Peripheral Pulses: 2+: Radial (L), Radial (R), Dorsalis Pedis (L), Dorsalis Pedis (R) Skin: Warm, Dry, Intact Wound/Incisions: Dressing Dry and Intact, No Drainage Neurological: No New Focal Deficit Psy/Mental Status: Alert, Normal Affect, Normal Mood Consult PN Assessment/Plan POD#: 1 Procedures: Procedures CATARACT SURG W/IOL 1 STAGE (11/14/14) DRAIN/INJ JOINT/BURSA W/O US (04/28/17) INCISE FINGER TENDON SHEATH (04/28/17) MEDICAL NUTRITION INDIV IN (07/12/18) METABOLIC PANEL TOTAL CA (04/28/17) MR-STAPH DNA AMP PROBE (06/28/18) ROUTINE VENIPUNCTURE (04/28/17) (1) Status post total shoulder arthroplasty SNOMED Code(s): 057057035, [id number] Code(s): Z96.619 - PRESENCE OF UNSPECIFIED ARTIFICIAL SHOULDER JOINT Priority: High Current Visit: Yes Comment: Reverse TSA Qualifiers: Laterality: right Qualified Code(s): Z96.611 - Presence of right artificial shoulder joint Problem List Initiated/Reviewed/Updated: Yes My Orders Last 24 Hours: My Active Orders 07/17/18 12:44 Scopolamine [Transderm-Scop] 1.5 mg TRDERM Q72H PRN Plan: I/P: Acute: S/P right total reverse shoulder arthroplasty - post-operative day 1 -DVT prophylaxis and pain management per primary care team -PT/OT -IS/RT -Monitor oxygen saturation -Titrate oxygen as needed -Vital signs stable -Monitor labs -Hgb 12.6; Now -GFR 68; Now Osteoarthritis of shoulder -Pain management per primary care team Chronic: Migrane w/ anesthesia GERD Ampulla of vater CA Osteoporosis OA S/p Whipple h/o C spine surgery Hypoproteinemia Plan: CM for discharge planning GI prophylaxis: Protonix DVT/PE prophylaxis: ASA, BRENDEN hose, SCDs Home medications as indicated Other orders as listed above Routine AM labs She is a full code. Overall from a hospitalist standpoint Janel is doing very well. Labs have remained stable long with vital signs. She did report some brief nausea after receiving her pain medications but this has resolved quickly. Nursing has been attempting to give her medications with food which has improved this greatly. She has no concerns and there are no nursing concerns. She has been up ambulating and working with PT/OT. She is off of oxygen and has urinated. Labs and vital signs remain stable. She will be cleared for discharge pending primary team and PT/OT agreement. Thank you for allowing us to participate in the care of this patient!
[2018-07-18] MEDS: Acetaminophen/HYDROcodone 325-5 MG Tab PO PRN ×2 (06:53→11:53)
--- NOTE | 2018-07-18 08:14 | PCM.SURGPN ---
- General Info Date of Service: 07/18/18 POD#: 1 Functional Status: Reports: Pain Controlled, Tolerating Diet, Ambulating, Urinating, Incentive Spirometry, Other (The pt states she has been independent in her room.) - Patient Data Vitals - Most Recent: Last Vital Signs Temp 98.1 F 07/18/18 05:54 Pulse 84 07/18/18 05:54 Resp 16 07/18/18 05:54 BP 112/53 L 07/18/18 05:54 Pulse Ox 88 L 07/18/18 05:54 Weight - Most Recent: 121 lb 6.4 oz I&O - Last 24 Hours: Intake & Output 07/17/18 07/18/18 07/18/18 22:59 06:59 14:59 Intake Total 1500 900 Output Total 900 650 Balance 600 250 Lab Results Last 24 Hrs: Laboratory Results - last 24 hr 07/18/18 07/18/18 Range/Units 06:00 06:00 WBC 6.21 (3.98-10.04) K/mm3 RBC 3.32 L (3.98-5.22) M/mm3 Hgb 10.3 L (11.2-15.7) gm/L Hct 32.5 L (34.1-44.9) % MCV 97.9 H (79.4-94.8) fl MCH 31.0 (25.6-32.2) pg MCHC 31.7 L (32.2-35.5) g/dl RDW Std Deviation 48.4 H (36.4-46.3) fL Plt Count 150 L (182-369) K/mm3 MPV 11.0 (9.4-12.3) fl Sodium 140 (136-145) mEq/L Potassium 4.0 (3.5-5.1) mEq/L Chloride 105 (98-107) mEq/L Carbon Dioxide 28 (21-32) mEq/L Anion Gap 11.0 (5-15) BUN 20 H (7-18) mg/dL Creatinine 0.9 (0.55-1.02) mg/dL Est Cr Clr Drug Dosing 47.36 mL/min Estimated GFR (MDRD) > 60 (>60) mL/min BUN/Creatinine Ratio 22.2 H (14-18) Glucose 106 (83-115) mg/dL Calcium 8.5 (8.5-10.1) mg/dL Total Bilirubin 0.3 (0.2-1.0) mg/dL AST 77 H (15-37) U/L ALT 66 H (14-59) U/L Alkaline Phosphatase 78 (46-116) U/L Total Protein 5.6 L (6.4-8.2) g/dl Albumin 2.7 L (3.4-5.0) g/dl Globulin 2.9 gm/dL Albumin/Globulin Ratio 0.9 L (1-2) Med Orders - Current: Current Medications Hydrocodone Bitart/Acetaminophen (Mark 325-5 Mg) 1 - 2 tab PO Q4H PRN PRN Reason: Pain Last Admin: 07/18/18 06:53 Dose: 1 tab Aspirin (Ecotrin) 325 mg PO DAILY [facility] Bisacodyl (Dulcolax) 5 mg PO DAILY PRN PRN Reason: Constipation Calcium Carbonate (Calcium Carbonate/Vitamin D 600 Mg-200 Unit) 1 tab PO DAILY [facility] Cholecalciferol (Vitamin D3) 5,000 unit PO DAILY [facility] Cyclobenzaprine HCl (Flexeril) 10 mg PO TID PRN PRN Reason: Spasms Last Admin: 07/17/18 14:35 Dose: 10 mg Docusate Sodium (Colace) 100 mg PO BID [facility] Last Admin: 07/17/18 20:06 Dose: 100 mg Ferrous Sulfate (Ferrous Sulfate) 325 mg PO DAILY [facility] Ketorolac Tromethamine (Toradol) 15 mg IVPUSH Q6H PRN PRN Reason: Pain Last Admin: 07/18/18 00:14 Dose: 15 mg Magnesium Hydroxide (Milk Of Magnesia) 30 ml PO BID PRN PRN Reason: Constipation Miscellaneous Information (Remove Patch) 1 ea TRDERM Q72H [facility] Morphine Sulfate (Morphine) 2 mg IVPUSH Q2H PRN PRN Reason: Breakthrough Pain Multivitamins (Thera) 1 each PO DAILY [facility] Naloxone HCl (Narcan) 0.1 mg IVPUSH Q5M PRN PRN Reason: Oversedation Ondansetron HCl (Zofran) 4 mg IVPUSH Q6H PRN PRN Reason: Nausea/Vomiting Last Admin: 07/18/18 00:10 Dose: 4 mg Pantoprazole Sodium (Protonix) 40 mg PO BID [facility] Last Admin: 07/17/18 20:06 Dose: 40 mg Amylase/Lipase/Protease 20,000 Unit Cap 0 each PO TIDMEALS [facility] Last Admin: 07/18/18 06:08 Dose: 1 each Scopolamine (Transderm-Scop) 1.5 mg TRDERM Q72H PRN PRN Reason: vomiting Last Admin: 07/17/18 12:56 Dose: 1.5 mg Senna (Senna) 8.6 mg PO BID PRN PRN Reason: Constipation Sodium Chloride (Saline Flush) 10 ml FLUSH ASDIRECTED PRN PRN Reason: Keep Vein Open Discontinued Medications Acetaminophen (Tylenol) 975 mg PO ONETIME ONE Stop: 07/17/18 06:01 Last Admin: 07/17/18 06:55 Dose: 975 mg Cefazolin Sodium (Ancef) Confirm Administered Dose 2 gm .ROUTE .STK-MED ONE Stop: 07/17/18 07:07 Last Admin: 07/17/18 09:30 Dose: 2 gm Cefazolin Sodium (Ancef) Confirm Administered Dose 2 gm .ROUTE .STK-MED ONE Stop: 07/17/18 07:10 Morphine Sulfate 8 mg/Epinephrine HCl 0.3 mg/Cefuroxime Sodium 750 mg/Ketorolac Tromethamine 30 mg/Sodium Chloride 27.9 ml 0 mg .XX ONETIME ONE Stop: 07/17/18 06:41 Last Admin: 07/17/18 18:58 Dose: Not Given Dexamethasone (Dexamethasone) Confirm Administered Dose 4 mg .ROUTE .STK-MED ONE Stop: 07/17/18 07:10 Ephedrine Sulfate (Ephedrine In Ns) Confirm Administered Dose 25 mg .ROUTE .STK- MED ONE Stop: 07/17/18 09:06 Epinephrine HCl (Adrenalin) Confirm Administered Dose 1 mg .ROUTE .STK-MED ONE Stop: 07/17/18 07:19 Fentanyl (Sublimaze) Confirm Administered Dose 250 mcg .ROUTE .STK-MED ONE Stop: 07/17/18 07:11 Lactated Ringer's (Ringers, Lactated) 1,000 mls @ 125 mls/hr IV ASDIRECTED [facility] Last Admin: 07/17/18 11:05 Dose: 125 mls/hr Cefazolin Sodium/Dextrose 2 gm (/ Premix) 50 mls @ 100 mls/hr IV Q8H [facility] Stop: 07/18/18 07:44 Last Admin: 07/18/18 06:44 Dose: 100 mls/hr Lidocaine HCl (Xylocaine-Mpf 1%) Confirm Administered Dose 4 mls @ as directed .ROUTE .STK-MED ONE Stop: 07/17/18 07:10 Lactated Ringer's (Ringers, Lactated) Confirm Administered Dose 1,000 mls @ as directed .ROUTE .STK-MED ONE Stop: 07/17/18 07:10 Lidocaine HCl (Xylocaine-Mpf 1%) Confirm Administered Dose 2 mls @ as directed .ROUTE .STK-MED ONE Stop: 07/17/18 07:17 Iodine (Iodine 2% Mild Tincture) Confirm Administered Dose 30 ml .ROUTE .STK- MED ONE Stop: 07/17/18 07:07 Last Admin: 07/17/18 09:27 Dose: 18 ml Lidocaine/Sodium Bicarbonate (Buffered Lidocaine 1% In Ns 8.4%) 0.25 ml IDERM ONETIME PRN PRN Reason: Prior to IV Start Last Admin: 07/17/18 06:50 Dose: 0.25 ml Midazolam HCl (Versed 1 Mg/Ml) Confirm Administered Dose 2 mg .ROUTE .STK-MED ONE Stop: 07/17/18 07:11 Non-Formulary Medication (Sumatriptan Succinate [Imitrex]) 1 tab PO ASDIRECTED PRN PRN Reason: Headache Oxycodone HCl (Oxycontin) 10 mg PO ONETIME ONE Stop: 07/17/18 06:01 Last Admin: 07/17/18 06:55 Dose: 10 mg Amylase/Lipase/ (Protease 10,000 Unit) 0 each PO TID [facility] Last Admin: 07/17/18 18:59 Dose: Not Given Phenylephrine HCl (Phenylephrine In Ns 100 Mcg/Ml) Confirm Administered Dose 2 mg .ROUTE .STK-MED ONE Stop: 07/17/18 09:06 Pregabalin (Lyrica) 50 mg PO ONETIME ONE Stop: 07/17/18 06:01 Last Admin: 07/17/18 06:56 Dose: 50 mg Propofol (Diprivan 20 Ml) Confirm Administered Dose 400 mg .ROUTE .STK-MED ONE Stop: 07/17/18 07:11 Ropivacaine (Naropin 0.5%) Confirm Administered Dose 30 ml .ROUTE .STK-MED ONE Stop: 07/17/18 07:19 Tranexamic Acid (Cyklokapron) Confirm Administered Dose 1,000 mg .ROUTE .STK- MED ONE Stop: 07/17/18 07:07 Last Admin: 07/17/18 09:33 Dose: 1,000 mg Vancomycin HCl (Vancomycin) Confirm Administered Dose 1 gm .ROUTE .STK-MED ONE Stop: 07/17/18 07:07 Last Admin: 07/17/18 09:33 Dose: 1 gm - Exam Wound/Incisions: Dressing Dry and Intact General: Alert, Cooperative, No Acute Distress Lungs: Normal Respiratory Effort Extremities: Other (NVS intact for RUE. ) - Problem List Review Problem List Initiated/Reviewed/Updated: Yes - My Orders Last 24 Hours: Active Orders 24 hr Category Date Time Status Ready for Discharge [RC] PER UNIT ROUTINE Care 07/18/18 08:09 Active Regular Diet [DIET] Diet 07/17/18 Lunch Active Aspirin [Ecotrin] Med 07/18/18 09:00 Active 325 mg PO DAILY Calcium Carbonate/Vitamin D3 [Calcium Carbonate/Vitamin Med 07/18/18 09:00 Active D 600 MG-200 Unit] 1 tab PO DAILY Cholecalciferol (Vitamin D3) [Vitamin D3] Med 07/18/18 09:00 Active 5,000 unit PO DAILY Docusate Sodium [Colace] Med 07/17/18 21:00 Active 100 mg PO BID Ferrous Sulfate Med 07/18/18 09:00 Active 325 mg PO DAILY Multivitamins,Therapeutic [Thera] Med 07/18/18 09:00 Active 1 each PO DAILY Pantoprazole [ProTONIX] Med 07/17/18 21:00 Active 40 mg PO BID Patient's Own Medication [Ptom] Med 07/17/18 17:00 Active 0 each PO TIDMEALS Remove Patch Med 07/20/18 13:00 Active 1 ea TRDERM Q72H Scopolamine [Transderm-Scop] Med 07/17/18 12:44 Active 1.5 mg TRDERM Q72H PRN Medication Orders Hydrocodone Bitart/Acetaminophen (Mark 325-5 Mg) 1 - 2 tab PO Q4H PRN PRN Reason: Pain Last Admin: 07/18/18 06:53 Dose: 1 tab Admin: 07/17/18 20:06 Dose: 2 tab Admin: 07/17/18 12:26 Dose: 2 tab Aspirin (Ecotrin) 325 mg PO DAILY [facility] Bisacodyl (Dulcolax) 5 mg PO DAILY PRN PRN Reason: Constipation Calcium Carbonate (Calcium Carbonate/Vitamin D 600 Mg-200 Unit) 1 tab PO DAILY [facility] Cholecalciferol (Vitamin D3) 5,000 unit PO DAILY [facility] Cyclobenzaprine HCl (Flexeril) 10 mg PO TID PRN PRN Reason: Spasms Last Admin: 07/17/18 14:35 Dose: 10 mg Docusate Sodium (Colace) 100 mg PO BID [facility] Last Admin: 07/17/18 20:06 Dose: 100 mg Ferrous Sulfate (Ferrous Sulfate) 325 mg PO DAILY [facility] Ketorolac Tromethamine (Toradol) 15 mg IVPUSH Q6H PRN PRN Reason: Pain Last Admin: 07/18/18 00:14 Dose: 15 mg Magnesium Hydroxide (Milk Of Magnesia) 30 ml PO BID PRN PRN Reason: Constipation Miscellaneous Information (Remove Patch) 1 ea TRDERM Q72H [facility] Morphine Sulfate (Morphine) 2 mg IVPUSH Q2H PRN PRN Reason: Breakthrough Pain Multivitamins (Thera) 1 each PO DAILY [facility] Naloxone HCl (Narcan) 0.1 mg IVPUSH Q5M PRN PRN Reason: Oversedation Ondansetron HCl (Zofran) 4 mg IVPUSH Q6H PRN PRN Reason: Nausea/Vomiting Last Admin: 07/18/18 00:10 Dose: 4 mg Admin: 07/17/18 12:25 Dose: 4 mg Pantoprazole Sodium (Protonix) 40 mg PO BID [facility] Last Admin: 07/17/18 20:06 Dose: 40 mg Amylase/Lipase/Protease 20,000 Unit Cap 0 each PO TIDMEALS [facility] Last Admin: 07/18/18 06:08 Dose: 1 each Admin: 07/17/18 17:25 Dose: 1 each Scopolamine (Transderm-Scop) 1.5 mg TRDERM Q72H PRN PRN Reason: vomiting Last Admin: 07/17/18 12:56 Dose: 1.5 mg Senna (Senna) 8.6 mg PO BID PRN PRN Reason: Constipation Sodium Chloride (Saline Flush) 10 ml FLUSH ASDIRECTED PRN PRN Reason: Keep Vein Open - Assessment Assessment (Free Text/Narrative):: POD#1 - right reverse TSA - Plan Plan (Free Text/Narrative):: 1. Discharge to home today. The pt will have the assistance of her daughter. 2. Hgb 10.3. 3. 325mg ASA PO daily. 4. Outpatient therapy. The pt's case was discussed with Dr. Henao.
--- NOTE | 2018-07-18 08:24 | PCM.DCSUM1 ---
Discharge Summary - Hospital Course Brief History: Janel is a 72 yo female who underwent right reverse TSA with Dr. Henao on 07-17-2018. The procedure was completed under general anesthesia with regional block. The pt tolerated the procedure well and was admitted to the Medical-Surgical Unit. Medical management was provided by the Hospitalist service. The pt's Hospital course was uneventful. The pt's Hgb on POD#1 was 10.3. On POD#1, 325mg ASA PO daily was initiated for VTE prophylaxis. SCDs and TEDs were also ordered. A Mepilex dressing was placed at the incision site at the time of surgery and remained clean and dry. The pt participated in P.T. and O.T. and progressed well. On POD#1, the pt was deemed appropriate to discharge to home. - Discharge Data Discharge Date: 07/18/18 Discharge Disposition: Home, Self-Care 01 Condition: Good - Patient Summary/Data Operative Procedure(s) Performed: right reverse total shoulder arthroplasty Consults: Consultations 07/17/18 06:40 OT Evaluation and Treatment [CONS] Routine PT Evaluation and Treatment [CONS] Routine 07/17/18 06:41 Consult to Physician [CONS] Routine - Patient Instructions Diet: Usual Diet as Tolerated Activity: Apply Ice, As Tolerated, Elevate Extremity Activity, Other: No forceful use of the surgical arm. Wear the immobilizer. Driving: Do Not Drive Showering/Bathing: May Shower Wound/Incision Care: Keep Operative Site/Wound Site Clean and Dry, Do NOT Change Dressing Notify Provider of: Fever, Increased Pain, Swelling and Redness, Drainage, Nausea and/or Vomiting Other/Special Instructions: Please get up and moving around EVERY HOUR while awake. This helps to prevent blood clots. Have help with mobility as needed. Take a short walk in your home every hour while awake. Please take an aspirin daily. The aspirin is being used to help prevent a blood clot after surgery. You could use a medication like Zantac or Pepcid and a medication like Prilosec or Nexium to protect your stomach while you are using the aspirin. At home, please complete the exercises that you learned during the Hospital stay. Use the immobilizer as directed. Schedule for physical or occupational therapy. The therapy order was given to you at your pre-operative visit with Arianna Hill PA-C at the [facility]. Use the pain medication as needed. The medication may cause drowsiness and constipation. Contact your primary care provider for instructions if you are constipated. You may use a stool softener like docusate sodium or Colace 100mg twice daily and/or a laxative like Miralax daily for constipation. Increase your water and fiber intake while you are using the pain medication. Discontinue use of the pain medication as soon as able. Please do not use other medications that may cause drowsiness (other pain medications, anxiety pills, cold medications, sleeping pills, etc) while using the prescription pain medication. Do not use alcohol while using the pain medication. Wear the BRENDEN hose during the day and you may remove these at night. Elevate the limb to decrease swelling. Place ice to the area often. Place a towel between your skin and the blue pad. Use the incentive spirometer often. Take deep breaths throughout the day. Please keep the dressing in place until follow-up. Notify the Clinic if the dressing becomes saturated. Increase your protein intake while you are healing. If you have diabetes, please closely monitor your blood sugars and notify your primary care provider with abnormal values. Elevated blood sugars increases the risk of infection. You may resume use of your multivitamin at this time. Call the Clinic with questions or concerns - [phone]. - Discharge Plan *PRESCRIPTION DRUG MONITORING PROGRAM REVIEWED*: No *COPY OF PRESCRIPTION DRUG MONITORING REPORT IN PATIENT [place]: No Prescriptions/Med Rec: Acetaminophen/HYDROcodone [[place] 325-5 MG] 1 - 2 tab PO Q6H PRN #60 tablet PRN Reason: Pain Aspirin [Ecotrin] 325 mg PO DAILY #40 tab.ec Home Medications: Home Meds Amylase/Lipase/Protease [Zenpep DR 10,000 Unit] 1 cap PO TIDMEALS 11/13/14 [ History] Omeprazole 20 mg PO 0700,1700 11/13/14 [History] SUMAtriptan Succinate [Imitrex] 1 tab PO DAILY PRN 11/14/14 [History] Ferrous Sulfate [Iron] 325 mg PO DAILY 04/27/17 [History] Calcium Carbonate/Vitamin D3 [Calcium 600 + Vit D 200] 1 tab PO DAILY 07/14/18 [ History] Cholecalciferol (Vitamin D3) [Vitamin D3] 5,000 unit PO DAILY 07/14/18 [History] Acetaminophen/HYDROcodone [[place] 325-5 MG] 1 - 2 tab PO Q6H PRN #60 tablet 07/17 [Rx] Aspirin [Ecotrin] 325 mg PO DAILY #40 tab.ec 07/17/18 [Rx] Bisacodyl [Dulcolax] 5 mg PO DAILY PRN tablet 07/17/18 [Rx] Docusate Sodium [Colace] 100 mg PO BID cap 07/17/18 [Rx] Magnesium Hydroxide [Milk of Magnesia] 30 ml PO BID PRN cup 07/17/18 [Rx] Remove Patch 1 ea TRDERM Q72H each 07/17/18 [Rx] Sennosides [Senna] 8.6 mg PO BID PRN tablet 07/17/18 [Rx] Referrals: Arianna Hill PA-C [[facility] [employer]] - (1. Follow-up with Arianna Hill PA-C on Wednesday, July 25, 2018 at 8:30am. 2. Follow-up with Arianna Hill PA-C on Wednesday, August 01, 2018 at 8:30am.) - Discharge Summary/Plan Comment DC Time >30 min.: No - Patient Data Vitals - Most Recent: Last Vital Signs Temp 98.1 F 07/18/18 05:54 Pulse 84 07/18/18 05:54 Resp 16 07/18/18 05:54 BP 112/53 L 07/18/18 05:54 Pulse Ox 88 L 07/18/18 05:54 Weight - Most Recent: 121 lb 6.4 oz I&O - Last 24 hours: Intake & Output 07/17/18 07/18/18 07/18/18 22:59 06:59 14:59 Intake Total 1500 900 Output Total 900 650 Balance 600 250 Lab Results - Last 24 hrs: Laboratory Results - last 24 hr 07/18/18 07/18/18 Range/Units 06:00 06:00 WBC 6.21 (3.98-10.04) K/mm3 RBC 3.32 L (3.98-5.22) M/mm3 Hgb 10.3 L (11.2-15.7) gm/L Hct 32.5 L (34.1-44.9) % MCV 97.9 H (79.4-94.8) fl MCH 31.0 (25.6-32.2) pg MCHC 31.7 L (32.2-35.5) g/dl RDW Std Deviation 48.4 H (36.4-46.3) fL Plt Count 150 L (182-369) K/mm3 MPV 11.0 (9.4-12.3) fl Sodium 140 (136-145) mEq/L Potassium 4.0 (3.5-5.1) mEq/L Chloride 105 (98-107) mEq/L Carbon Dioxide 28 (21-32) mEq/L Anion Gap 11.0 (5-15) BUN 20 H (7-18) mg/dL Creatinine 0.9 (0.55-1.02) mg/dL Est Cr Clr Drug Dosing 47.36 mL/min Estimated GFR (MDRD) > 60 (>60) mL/min BUN/Creatinine Ratio 22.2 H (14-18) Glucose 106 (83-115) mg/dL Calcium 8.5 (8.5-10.1) mg/dL Total Bilirubin 0.3 (0.2-1.0) mg/dL AST 77 H (15-37) U/L ALT 66 H (14-59) U/L Alkaline Phosphatase 78 (46-116) U/L Total Protein 5.6 L (6.4-8.2) g/dl Albumin 2.7 L (3.4-5.0) g/dl Globulin 2.9 gm/dL Albumin/Globulin Ratio 0.9 L (1-2) Med Orders - Current: Current Medications Hydrocodone Bitart/Acetaminophen ([place] 325-5 Mg) 1 - 2 tab PO Q4H PRN PRN Reason: Pain Last Admin: 07/18/18 06:53 Dose: 1 tab Aspirin (Ecotrin) 325 mg PO DAILY [facility] Bisacodyl (Dulcolax) 5 mg PO DAILY PRN PRN Reason: Constipation Calcium Carbonate (Calcium Carbonate/Vitamin D 600 Mg-200 Unit) 1 tab PO DAILY [facility] Cholecalciferol (Vitamin D3) 5,000 unit PO DAILY [facility] Cyclobenzaprine HCl (Flexeril) 10 mg PO TID PRN PRN Reason: Spasms Last Admin: 07/17/18 14:35 Dose: 10 mg Docusate Sodium (Colace) 100 mg PO BID [facility] Last Admin: 07/17/18 20:06 Dose: 100 mg Ferrous Sulfate (Ferrous Sulfate) 325 mg PO DAILY [facility] Ketorolac Tromethamine (Toradol) 15 mg IVPUSH Q6H PRN PRN Reason: Pain Last Admin: 07/18/18 00:14 Dose: 15 mg Magnesium Hydroxide (Milk Of Magnesia) 30 ml PO BID PRN PRN Reason: Constipation Miscellaneous Information (Remove Patch) 1 ea TRDERM Q72H [facility] Morphine Sulfate (Morphine) 2 mg IVPUSH Q2H PRN PRN Reason: Breakthrough Pain Multivitamins (Thera) 1 each PO DAILY [facility] Naloxone HCl (Narcan) 0.1 mg IVPUSH Q5M PRN PRN Reason: Oversedation Ondansetron HCl (Zofran) 4 mg IVPUSH Q6H PRN PRN Reason: Nausea/Vomiting Last Admin: 07/18/18 00:10 Dose: 4 mg Pantoprazole Sodium (Protonix) 40 mg PO BID [facility] Last Admin: 07/17/18 20:06 Dose: 40 mg Amylase/Lipase/Protease 20,000 Unit Cap 0 each PO TIDMEALS [facility] Last Admin: 07/18/18 06:08 Dose: 1 each Scopolamine (Transderm-Scop) 1.5 mg TRDERM Q72H PRN PRN Reason: vomiting Last Admin: 07/17/18 12:56 Dose: 1.5 mg Senna (Senna) 8.6 mg PO BID PRN PRN Reason: Constipation Sodium Chloride (Saline Flush) 10 ml FLUSH ASDIRECTED PRN PRN Reason: Keep Vein Open Discontinued Medications Acetaminophen (Tylenol) 975 mg PO ONETIME ONE Stop: 07/17/18 06:01 Last Admin: 07/17/18 06:55 Dose: 975 mg Cefazolin Sodium (Ancef) Confirm Administered Dose 2 gm .ROUTE .STK-MED ONE Stop: 07/17/18 07:07 Last Admin: 07/17/18 09:30 Dose: 2 gm Cefazolin Sodium (Ancef) Confirm Administered Dose 2 gm .ROUTE .STK-MED ONE Stop: 07/17/18 07:10 Morphine Sulfate 8 mg/Epinephrine HCl 0.3 mg/Cefuroxime Sodium 750 mg/Ketorolac Tromethamine 30 mg/Sodium Chloride 27.9 ml 0 mg .XX ONETIME ONE Stop: 07/17/18 06:41 Last Admin: 07/17/18 18:58 Dose: Not Given Dexamethasone (Dexamethasone) Confirm Administered Dose 4 mg .ROUTE .STK-MED ONE Stop: 07/17/18 07:10 Ephedrine Sulfate (Ephedrine In Ns) Confirm Administered Dose 25 mg .ROUTE .STK- MED ONE Stop: 07/17/18 09:06 Epinephrine HCl (Adrenalin) Confirm Administered Dose 1 mg .ROUTE .STK-MED ONE Stop: 07/17/18 07:19 Fentanyl (Sublimaze) Confirm Administered Dose 250 mcg .ROUTE .STK-MED ONE Stop: 07/17/18 07:11 Lactated Ringer's (Ringers, Lactated) 1,000 mls @ 125 mls/hr IV ASDIRECTED [facility] Last Admin: 07/17/18 11:05 Dose: 125 mls/hr Cefazolin Sodium/Dextrose 2 gm (/ Premix) 50 mls @ 100 mls/hr IV Q8H [facility] Stop: 07/18/18 07:44 Last Admin: 07/18/18 06:44 Dose: 100 mls/hr Lidocaine HCl (Xylocaine-Mpf 1%) Confirm Administered Dose 4 mls @ as directed .ROUTE .STK-MED ONE Stop: 07/17/18 07:10 Lactated Ringer's (Ringers, Lactated) Confirm Administered Dose 1,000 mls @ as directed .ROUTE .STK-MED ONE Stop: 07/17/18 07:10 Lidocaine HCl (Xylocaine-Mpf 1%) Confirm Administered Dose 2 mls @ as directed .ROUTE .STK-MED ONE Stop: 07/17/18 07:17 Iodine (Iodine 2% Mild Tincture) Confirm Administered Dose 30 ml .ROUTE .STK- MED ONE Stop: 07/17/18 07:07 Last Admin: 07/17/18 09:27 Dose: 18 ml Lidocaine/Sodium Bicarbonate (Buffered Lidocaine 1% In Ns 8.4%) 0.25 ml IDERM ONETIME PRN PRN Reason: Prior to IV Start Last Admin: 07/17/18 06:50 Dose: 0.25 ml Midazolam HCl (Versed 1 Mg/Ml) Confirm Administered Dose 2 mg .ROUTE .STK-MED ONE Stop: 07/17/18 07:11 Non-Formulary Medication (Sumatriptan Succinate [Imitrex]) 1 tab PO ASDIRECTED PRN PRN Reason: Headache Oxycodone HCl (Oxycontin) 10 mg PO ONETIME ONE Stop: 07/17/18 06:01 Last Admin: 07/17/18 06:55 Dose: 10 mg Amylase/Lipase/ (Protease 10,000 Unit) 0 each PO TID [facility] Last Admin: 07/17/18 18:59 Dose: Not Given Phenylephrine HCl (Phenylephrine In Ns 100 Mcg/Ml) Confirm Administered Dose 2 mg .ROUTE .STK-MED ONE Stop: 07/17/18 09:06 Pregabalin (Lyrica) 50 mg PO ONETIME ONE Stop: 07/17/18 06:01 Last Admin: 07/17/18 06:56 Dose: 50 mg Propofol (Diprivan 20 Ml) Confirm Administered Dose 400 mg .ROUTE .STK-MED ONE Stop: 07/17/18 07:11 Ropivacaine (Naropin 0.5%) Confirm Administered Dose 30 ml .ROUTE .STK-MED ONE Stop: 07/17/18 07:19 Tranexamic Acid (Cyklokapron) Confirm Administered Dose 1,000 mg .ROUTE .STK- MED ONE Stop: 07/17/18 07:07 Last Admin: 07/17/18 09:33 Dose: 1,000 mg Vancomycin HCl (Vancomycin) Confirm Administered Dose 1 gm .ROUTE .STK-MED ONE Stop: 07/17/18 07:07 Last Admin: 07/17/18 09:33 Dose: 1 gm
--- NOTE | 2018-07-18 08:30 | PCM48HPAN ---
Post Anesthesia Note - EVALUATION WITHIN 48HRS OF ANESTHETIC Vital Signs in Normal Range: Yes Patient Participated in Evaluation: Yes Respiratory Function Stable: Yes Airway Patent: Yes Cardiovascular Function Stable: Yes Hydration Status Stable: Yes Pain Control Satisfactory: Yes Nausea and Vomiting Control Satisfactory: Yes Mental Status Recovered: Yes - COMMENTS/OBSERVATIONS Free Text/Narrative:: Interscalene block started wearing off at 0000. No headache as of right now, but feels may one be starting.
[2018-07-18] MEDS: Docusate Sodium 100 MG Cap PO SCH (08:58)
[2018-07-18] MEDS: Pantoprazole 40 MG Tab.CR PO SCH (08:59)
[2018-07-18] MEDS ORDERED: Aspirin 325 MG Tab.EC PO SCH (09:00)
[2018-07-18] MEDS ORDERED: Cholecalciferol (Vitamin D3) 5,000 UNIT Tab PO SCH (09:00)
[2018-07-18] MEDS ORDERED: Calcium Carbonate/Vitamin D3 600 MG-200 Units Tab PO SCH (09:00)
[2018-07-18] MEDS ORDERED: Multivitamins,Therapeutic Tab PO SCH (09:00)
[2018-07-18] MEDS ORDERED: Ferrous Sulfate 325 MG Tab PO SCH (09:00)
[2018-07-18 12:04] VITALS: BP 103/59
--- NOTE | 2018-07-21 12:02 | OR ---
DATE OF OPERATION: 07/17/2018 SURGEON: Fan Henao MD OPERATION PERFORMED: Right reverse total shoulder arthroplasty. PREOPERATIVE DIAGNOSIS: Right shoulder rotator cuff tear arthropathy. POSTOPERATIVE DIAGNOSIS: Right shoulder rotator cuff tear arthropathy. ANESTHESIA: General endotracheal intubation with regional interscalene block. ANESTHESIA PROVIDER: Erin Varma. ASSISTANTS: 1. Arianna Hill PA-C. 2. Ruma Larson LPN. ESTIMATED BLOOD LOSS: 80 mL. COMPLICATIONS: None. CONDITION: Stable. IMPLANTS: 1. [place] size 7 Arthrex humeral stem. 2. Arthrex +6 mm 36 poly. 3. Arthrex small glenoid baseplate. 4. Arthrex 36 + 0 Glenosphere. DESCRIPTION OF PROCEDURE: The patient was identified in the preoperative holding area. The proper site was marked and identified by the surgeon. The patient was taken back to the operating theater, where after adequate anesthesia, the patient's right upper extremity was sterilely prepped and draped in the usual sterile fashion. OR time-out was performed. The patient received 2 g of IV Ancef. The patient was placed in a reverse Trendelenburg position. A standard deltopectoral incision was made. The cephalic vein was identified and was ligated. Deltopectoral interval was identified and was freed of any adhesions. Retractors were placed in the subdeltoid space. All adhesions were removed. At this time, the clavipectoral fascia was incised. The conjoint tendon was retracted medially. The anterior humeral circumflex vessels were then identified. Biceps tendon was identified. Subpectoral tenodesis was performed, and a release of the interval all the way up to the level of the glenoid with biceps was done at this time. Biceps was then resected. A peel down of the subscapularis tendon was then done, although the patient already had a high-grade partial-thickness tear of the subscapularis tendon. The patient was noted have complete tear off the supra- and infraspinatus. Neck cut was then completed of the humeral head. Attention was turned to the glenoid. Posterior and anterior retractors were placed. Circumferential removal of the labrum as well as capsule was done around the glenoid. A pin was placed in a center-center position. A central reamer was then used and then a peripheral reamer for a small glenoid baseplate that was found to have adequate coverage. The small glenoid baseplate was then impacted into place, and a central nonlocking screw was placed as well as locking inferior and superior screws, which then were found to have adequate purchase. At this time, attention was turned to the humerus. The humerus was broached up to a size 7, which was found to be rotationally and vertically stable. No offset was needed and a 36 reamer was then used. A 36 + 0 Glenosphere was then impacted into place and found to be adequately seated. A 36 + 3 was then trialed on the humeral side and was found to be a little bit loose, so 36 + 6 was then used and found to have adequate tension in both conjoint tendon as well as deltoid and was stable throughout range of motion. The size 7 Arthrex humeral stem was then opened as well as the 36, 135 degrees with a +6 liner. These were all constructed on the back table and then were impacted into the humerus. The humerus was then relocated and found to be stable throughout. C-arm fluoroscopy showed all implants well seated with no signs of fracture. A 1 L dilute Betadine solution was irrigated through the shoulder along with 3 L of pulse lavage irrigation with Ancef. Topical tranexamic acid was well as vancomycin powder was placed. Marcaine was injected. A 2-0 Vicryl was used subcutaneously and Prineo was used for the skin. The patient was sent to PACU in stable condition and in a pillow sling, and tolerated the procedure well. BARRY /[id number]
== END 2018-07-18 14:50 | disposition home or self-care (01) | DRG 483 ==
LOC: JD.MS 06:16
PROVIDERS: ADMIT Orthopaedic Surgery; ATTEND Orthopaedic Surgery
PROC: 0RRJ00Z Replacement of Right Shoulder Joint with Reverse Ball and Socket Synthetic Substitute, Open Approach (ICD-10-PCS; principal; 2018-07-17)
PROC: 3E0T3BZ Introduction of Anesthetic Agent into Peripheral Nerves and Plexi, Percutaneous Approach (ICD-10-PCS; 2018-07-17)
DX: M19.011 Primary osteoarthritis, right shoulder (principal); K21.9 Gastro-esophageal reflux disease without esophagitis; M81.0 Age-related osteoporosis without current pathological fracture; H54.7 Unspecified visual loss; G89.29 Other chronic pain; M54.9 Dorsalgia, unspecified; M54.2 Cervicalgia; D50.9 Iron deficiency anemia, unspecified; E55.9 Vitamin D deficiency, unspecified; L57.0 Actinic keratosis; E77.8 Other disorders of glycoprotein metabolism; G89.18 Other acute postprocedural pain; Z87.891 Personal history of nicotine dependence; Z79.899 Other long term (current) drug therapy; Z88.1 Allergy status to other antibiotic agents; Z90.710 Acquired absence of both cervix and uterus; Z85.07 Personal history of malignant neoplasm of pancreas; Z90.49 Acquired absence of other specified parts of digestive tract; Z79.82 Long term (current) use of aspirin; Z98.1 Arthrodesis status
CPT/HCPCS: 01638; 36415; 64415; 73020-26-RT; 73020-RT; 76000; 76000-26; 80053; 85027; 97110-GP; 97116-GP; 97162-GP; 97165-GO; 97535-GO; A9270-GY; C1713; C1776; J0171; J0690; J1100; J1885; J2001; J2250; J2370; J2405; J2704; J2795; J3010; J3370; J7050; J7120

== ENCOUNTER 2021-01-29 07:50 | Day surgery (SDC) | payer MEDICARE, BC ==
--- NOTE | 2021-01-28 12:04 | PCM.PREANE ---
<Lyn Ramsey - Last Filed: 01/28/21 11:58> Preanesthetic Assessment - Procedure Proposed Procedure: Left first CMC Joint Trapeziectomy with tightrope suspension and Left second MCP Joint steroid injection. - Anesthesia/Transfusion/Family Hx Anesthesia History: Prior Anesthesia Without Reaction Family History of Anesthesia Reaction: No Transfusion History: No Prior Transfusion(s) Intubation History: Unknown - Review of Systems Pulmonary: No Symptoms (November 2019: pulmonary infiltrate./Former smoker:quit 1996), Shortness of Breath Cardiovascular: Chest Pain Gastrointestinal: No Symptoms (GERD) Neurological: Headache (chronic cluster/migraines) Other: Reports: None (Decreased GFR), Diabetes (Diet controlled), Liver Problems (elevated liver enzymes), Neck Pain (chronic neck pain) - Physical Assessment NPO Status Date: 01/28/21 Vital Signs: HR: Sat: Temp: B/P: Resp: Height: 1.63 m ASA Class: 2 Mental Status: Alert & Oriented x3 - Lab Values: All labs reviewed and noted and within acceptable ranges to proceed with procedure. - Imaging/EKG Impressions: CXR: negative EKG: NSR rate=69, age indetermined septal infarct, left atrial enlargement. - Allergies Allergies/Adverse Reactions: Allergies Allergy/AdvReac Type Severity Reaction Status Date / Time amoxicillin [From Augmentin] AdvReac Nausea and Verified 01/28/21 15:35 Vomiting clavulanic acid AdvReac Nausea and Verified 01/28/21 15:35 [From Augmentin] Vomiting - Anesthesia Plan Pre-Op Medication Ordered: None - Acknowledgements Anesthesia Type Planned: MAC (with Peripheral nerve block) Pt an Appropriate Candidate for the Planned Anesthesia: Yes Alternatives and Risks of Anesthesia Discussed w Pt/Guardian: Yes Pt/Guardian Understands and Agrees with Anesthesia Plan: Yes PreAnesthesia Questionnaire HEENT History: Reports: Allergic Rhinitis, Impaired Vision, Other (See Below) Other HEENT History: wears glasses, has partials Cardiovascular History: Reports: None Respiratory History: Reports: Bronchitis, Recurrent Gastrointestinal History: Reports: GERD Other Gastrointestinal History: Sirisha 1996 - HOB evel. 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 OB/BYN History: Hysterectomy - 1975 Musculoskeletal History: Reports: Back Pain, Chronic, Fracture, Neck Pain, Chronic, Osteoarthritis, Osteoporosis Other Musculoskeletal History: Left knee fracture no sx, fx right ankle Neurological History: Reports: Migraines Psychiatric History: Reports: None Endocrine/Metabolic History: Reports: Vitamin D Deficiency Other Endocrine/Metabolic History: hypoglycemia Hematologic History: Reports: Anemia, Iron Deficiency Immunologic History: Reports: None Oncologic (Cancer) History: Reports: Pancreatic Other Oncologic History: ampula of vater cancer Dermatologic History: Reports: Other (See Below) Other Dermatologic History: actinic keratosis - Infectious Disease History Infectious Disease History: Reports: Chicken Pox, Measles, Mumps - Past Surgical History Neurological Surgical History: Reports: None - HOME MEDS Home Medications: Home Meds Omeprazole 20 mg PO DAILY 11/13/14 [History] SUMAtriptan succinate [Imitrex] 100 mg PO DAILY PRN 11/14/14 [History] Ferrous Sulfate [Iron] 325 mg PO DAILY 04/27/17 [History] Cholecalciferol (Vitamin D3) [Vitamin D3] 5,000 unit PO DAILY 07/14/18 [History] Lipase/Protease/Amylase [Zenpep DR 20,000 Unit] 1 each PO DAILY 03/12/20 [History] Ascorbic Acid [Vitamin C] 1,000 mg PO DAILY 01/28/21 [History] Denosumab [Prolia] 60 mg SQ ASDIRECTED 01/28/21 [History] Hydrocodone/Acetaminophen [HYDROcodone-Acetaminophen 5-325 MG] 1 - 2 each PO Q6H PRN #30 tablet 01/28/21 [Rx] Magnesium 200 mg PO DAILY 01/28/21 [History] Thiamine HCl [Vitamin B-1] 100 mg PO DAILY 01/28/21 [History] Triamcinolone Acetonide [Triamcinolone Acetonide 0.1% Crm] 1 dose TOP ASDIRECTED PRN 01/28/21 [History] hydrOXYzine HCL [hydrOXYzine] 50 mg PO BEDTIME 01/28/21 [History] <Katrin Domínguez - Last Filed: 01/29/21 08:44> Preanesthetic Assessment - Anesthesia/Transfusion/Family Hx Anesthesia History: Prior Anesthesia Without Reaction Family History of Anesthesia Reaction: No Transfusion History: No Prior Transfusion(s) Intubation History: Unknown - Review of Systems Pulmonary: No Symptoms Cardiovascular: Chest Pain (No chest pain today-history of chest wall pain) Gastrointestinal: No Symptoms Neurological: Headache (chronic cluster/migraines, no headache today) Other: Reports: Easy Bruising, Diabetes (Patient stated she is not diabetic and she is hypoglycemic ), Liver Problems, Neck Pain - Physical Assessment NPO Status Time: 22:00 Vital Signs: HR 68 Sat99% RR 14 Temp:97.2 BP 135/71 ASA Class: 2 Mental Status: Alert & Oriented x3 Airway Class: Mallampati = 2 Dentition: Reports: Partial (Upper and lower) Thyro-Mental Finger Breadths: 3 Mouth Opening Finger Breadths: 2 ROM/Head Extension: Full Lungs: Clear to Auscultation, Normal Respiratory Effort Cardiovascular: Regular Rate, Regular Rhythm, No Murmurs - Blood Blood Available: No Product(s) Available: None - Anesthesia Plan Pre-Op Medication Ordered: None - Acknowledgements Anesthesia Type Planned: MAC Pt an Appropriate Candidate for the Planned Anesthesia: Yes Alternatives and Risks of Anesthesia Discussed w Pt/Guardian: Yes Pt/Guardian Understands and Agrees with Anesthesia Plan: Yes PreAnesthesia Questionnaire Other Cardiovascular History: Chest wall pain-from pancreatic cancer Respiratory History: Reports: Bronchitis, Recurrent Other Respiratory History: Pulmonary infiltrate on CT 12/18/19, history of pneumonia Gastrointestinal History: Reports: GERD Other Gastrointestinal History: Elevated liver enzymes Musculoskeletal History: Reports: Back Pain, Chronic, Fracture, Gout, Neck Pain, Chronic, Osteoarthritis, Osteoporosis Other Musculoskeletal History: bunion right foot Neurological History: Reports: Migraines Other Neuro History: Neuritis Endocrine/Metabolic History: Reports: Hypomagnesemia (History of this per patient), Vitamin D Deficiency Other Endocrine/Metabolic History: Elevated HBA1C (6.0) Hematologic History: Reports: Anemia, B12 Deficiency, Iron Deficiency Oncologic (Cancer) History: Reports: Pancreatic Other Oncologic History: Pancreas removed - Past Surgical History GI Surgical History: Reports: Appendectomy Female Surgical History: Reports: Hysterectomy Other Neurological Surgeries/Procedures: Back surgery Musculoskeletal Surgical History: Reports: Shoulder Replacement Other Musculoskeletal Surgeries/Procedures:: Trigger finger release bilat 4th digits and 3rd digit to left Other Oncologic Surgeries/Procedures: Pancreas removed - SUBSTANCE USE Tobacco Use Status *Q: Never Tobacco User Tobacco Use Within Last Twelve Months: No Second Hand Smoke Exposure: No Days Per Week of Alcohol Use: 0 Number of Drinks Per Day: 0 Total Drinks Per Week: 0 Recreational Drug Use History: No - CURRENT (IN HOUSE) MEDS Current Meds: Current Medications Lactated Ringer's (Ringers, Lactated) 1,000 mls @ 125 mls/hr IV ASDIRECTED CATIE Stop: 01/29/21 18:00 Lidocaine/Sodium Bicarbonate (Lidocaine 1%/Sod Bicarbonate In Ns 8.4% 1 Ml Syringe) 0.25 ml IDERM ONETIME PRN PRN Reason: Prior to IV Start Stop: 01/29/21 18:00 Sodium Chloride (Sodium Chloride 0.9% 10 Ml Syringe) 10 ml FLUSH ASDIRECTED PRN PRN Reason: Keep Vein Open Stop: 01/29/21 18:00
[~2021-01-29 07:50] MED LIST changes: -Acetaminophen 325 MG Tab PO ONE; +Lactated Ringers 1,000 ML IV SCH; -Pregabalin 25 MG Cap PO ONE; -oxyCODONE ER 10 MG TAB.ER PO ONE
[2021-01-29] MEDS ORDERED: Midazolam 1 MG/ML 2 ML SDV ONE (08:32)
[2021-01-29] MEDS ORDERED: fentaNYL 100 MCG/2 ML SDV ONE (08:33)
[2021-01-29] MEDS ORDERED: Ropivacaine 0.5% 5 MG/ML 30 ML SDV ONE (09:02)
[2021-01-29] MEDS ORDERED: Lidocaine 1% 4 ML ONE (09:06)
[2021-01-29] MEDS ORDERED: Propofol 200 MG/20 ML SDV ONE (09:15)
[2021-01-29] MEDS ORDERED: Triamcinolone Acetonide 40 MG/ML 1 ML SDV ONE (09:22)
[2021-01-29] MEDS ORDERED: Bupivacaine 0.25% 10 ML SDV ONE (09:22)
--- NOTE | 2021-01-29 09:58 | PCM.PRNOTE ---
- Free Text/Narrative Note: Pre-op Dx: Left 1st carpometacarpal joint osteoarthritis Surgical procedure: Left 1st carpometacarpal joint arthtoplasty Procedure: Left radial nerve and left median nerve block at forearm with U/S guidance Requesting physician: Dr. Fan Walton Risks and benefits discussed with the patient preoperatively including infection, bleeding, incomplete or failed block, possible nerve damage, local anesthetic toxicity. Chart reviewed, VS stable. Permit signed. Patient in preoperative room, stable , alert and awake. Time out performed. Oxygen 3L via NC. Left forearm extended and supinated, positioned over the pillow at the bedside, prepped with Chloraprep x 1 and allowed to dry. Midazolam IV 1 mg given. Under aseptic technique, the radial artery was identified under ultrasound . Local infiltration with 2 mls of 1% Lidocaine. 2" Stimuplex needle #22 G was inserted under US guidance. Under direct visualization of needle tip the injection of 0.5% Ropivacaine (8 ml), maintaining negative aspiration was completed without problems around radius bone and radial artery to cover branches of the radial nerve. After that the needle was redirected towards the medial portion of the forearm. Under aseptic technique, the median nerve was identified under ultrasound mid- forearm in the fascial plane between deep and superficial flexor muscle groups, median to radial artery. Under direct visualization of needle tip the injection of 0.5% Ropivacaine (8 ml), maintaining negative aspiration was completed without problems. No local anesthetic toxicity was noted. Patient is awake, stable and tolerated the procedure well. Please see the attached U/S images Start: 09:26 End: 09:32
[2021-01-29] MEDS ORDERED: ceFAZolin 1 GM Vial ONE (10:01)
[2021-01-29] MEDS ORDERED: Ondansetron 4 MG/2 ML SDV ONE (10:39)
--- NOTE | 2021-01-29 11:24 | PCM48HPAN ---
Post Anesthesia Note - EVALUATION WITHIN 48HRS OF ANESTHETIC Vital Signs in Normal Range: Yes Patient Participated in Evaluation: Yes Respiratory Function Stable: Yes Airway Patent: Yes Cardiovascular Function Stable: Yes Hydration Status Stable: Yes Pain Control Satisfactory: Yes Nausea and Vomiting Control Satisfactory: Yes Mental Status Recovered: Yes Vital Signs: Last Vital Signs Temp 97.5 F 01/29/21 11:17 Pulse 60 01/29/21 11:17 Resp 12 01/29/21 11:17 BP 140/80 01/29/21 11:17 Pulse Ox 98 01/29/21 11:17
--- NOTE | 2021-01-29 12:09 | CR ---
Left wrist: 4 fluoroscopic spot views of the left wrist were obtained. Study was obtained utilizing C-arm device. Comparison: No prior left wrist exam is available. Findings: Study shows removal of the trapezium. Surgical anchors are seen across the base of the first and second metacarpals. Fluoroscopy time is given as 14.7 seconds. Impression: 1. Procedural study as noted above. Diagnostic code #2
[2021-01-29 15:53] VITALS: BP 148/78; PULSE 55
--- NOTE | 2021-02-11 07:49 | PCM.OPNOTE ---
- General Post-Op/Procedure Note Date of Surgery/Procedure: 01/29/21 Operative Procedure(s): left wrist trapeziectomy with tight rope suspension arthroplasty Pre Op Diagnosis: left basilar thumb arthritis Post-Op Diagnosis: Same Anesthesia Technique: MAC, Regional Block Primary Surgeon: Fan Henao Anesthesia Provider: Trevor Parr [employer] Analyst: Arianna Hill EBL in mLs: 5 Complications: None Condition: Good
--- NOTE | 2021-02-12 11:24 | OR ---
DATE OF OPERATION: 01/29/2021 SURGEON: Fan Henao MD OPERATION PERFORMED: Left wrist trapeziectomy with a TightRope suspension arthroplasty. PREOPERATIVE DIAGNOSIS: Left basilar thumb joint arthritis. POSTOPERATIVE DIAGNOSIS: Left basilar thumb joint arthritis. ANESTHESIA: MAC with regional block. ANESTHESIA PROVIDER: Flaca Pavon. MULE RIDER: Arianna Hill PA-C. ESTIMATED BLOOD LOSS: 5 mL. COMPLICATIONS: None. CONDITION: Stable. DESCRIPTION OF PROCEDURE: The patient was identified in the preoperative holding area. Proper site was marked and identified by the surgeon. The patient was taken back to the operative theater, where after adequate anesthesia, the patient's left upper extremity was sterilely prepped and draped in the usual sterile fashion. OR time-out was performed. The patient received 2 g IV Ancef. Left upper extremity was then exsanguinated. Tourniquet was insufflated to 200 mmHg. Standard dorsal incision was made. This was taken down through the tendon sheath. Tendons were retracted. Neurovascular bundles proximally were retracted and a capsulotomy was performed. At this time, capsulotomy was performed on both the dorsal and volar side. Trapeziectomy was then performed with a rongeur and an osteotome until all bony fragments were removed. C-arm fluoroscopy confirmed that all bony fragments were removed. Guide pin was then placed at the base of the first metacarpal into the second metacarpal metaphyseal region. For the Arthrex TightRope suspension arthroplasty, small incision was made over the second metacarpal and a guide pin was placed with the TightRope suspension with the Endobutton on the base of the first metacarpal. C- arm fluoroscopy showed the patient had good bounce back effect. The second Endobutton was placed in the second metacarpal and then was tied. The patient had good bounce back effect. There was good anatomic alignment. The patient was able to close the thumb and small digit and place the palm flat on the table. Adequate saline was then irrigated through the wound. 3-0 Vicryl was used subcutaneously and nylon was used for closure of the skin. The patient was placed in a sterile soft dressing and a radial thumb spica splint and sent to the PACU in stable condition. MMODAL /[id number]
--- NOTE | 2021-02-23 09:28 | OR ---
DATE OF OPERATION: 01/29/2021 SURGEON: Fan Henao MD ADDENDUM: PREOPERATIVE DIAGNOSIS: Left second metacarpophalangeal joint arthritis. POSTOPERATIVE DIAGNOSIS: Left second metacarpophalangeal joint arthritis. Under sterile technique, 1 mL of 40 mg Kenalog, 1 mL of 0.25% Marcaine was injected to the patient's left second MCP joint after the trapeziectomy. MMODAL /[id number]
== END 2021-01-29 13:05 | disposition home or self-care (01) ==
LOC: JD.SDS 07:50
PROVIDERS: ATTEND Orthopaedic Surgery
DX: M18.0 Bilateral primary osteoarthritis of first carpometacarpal joints (principal); M19.042 Primary osteoarthritis, left hand; M81.0 Age-related osteoporosis without current pathological fracture; E11.9 Type 2 diabetes mellitus without complications; M10.9 Gout, unspecified; Z88.0 Allergy status to penicillin; Z88.8 Allergy status to other drugs, medicaments and biological substances
CPT/HCPCS: 20600; 25332; 76000; C1713; J0690; J2250; J2405; J2704; J2795; J3010; J3301; J3490; J7120; 01830; 64450; 76942; 99100

== ENCOUNTER 2022-03-11 10:26 | Day surgery (SDC) | payer MEDICARE, BC ==
[~2022-03-11 10:26] MED LIST changes: +Midazolam 1 MG/ML 2 ML SDV ONE; +Propofol 200 MG/20 ML SDV ONE; +Sodium Chloride 0.9% 10 ML Syringe FLUSH SCH; +ceFAZolin 2 GM Vial ONE; +fentaNYL 100 MCG/2 ML SDV ONE
[2022-03-11] MEDS ORDERED: Bupivacaine 0.25% 10 ML SDV ONE (10:32)
[2022-03-11] MEDS ORDERED: Ondansetron 4 MG/2 ML SDV ONE (11:50)
[2022-03-11] MEDS ORDERED: Propofol 200 MG/20 ML SDV ONE (12:14)
[2022-03-11] MEDS ORDERED: fentaNYL 100 MCG/2 ML SDV ONE (12:16)
[2022-03-11] MEDS ORDERED: Ondansetron 4 MG/2 ML SDV IVPUSH PRN (12:57)
[2022-03-11] MEDS ORDERED: HYDROmorphone 0.5 MG/0.5 ML Syringe IVPUSH PRN (12:57)
[2022-03-11] MEDS ORDERED: fentaNYL 100 MCG/2 ML SDV IVPUSH PRN (12:57)
[2022-03-11 14:28] VITALS: BP 112/70; PULSE 78
[2022-03-11] MEDS ORDERED: traMADol 50 MG Tab PO ONE (14:30)
== END 2022-03-11 14:18 | disposition home or self-care (01) ==
LOC: JD.SDS 10:26
PROVIDERS: ATTEND Orthopaedic Surgery
DX: M18.11 Unilateral primary osteoarthritis of first carpometacarpal joint, right hand (principal); K21.9 Gastro-esophageal reflux disease without esophagitis; M81.0 Age-related osteoporosis without current pathological fracture; E16.2 Hypoglycemia, unspecified; D50.9 Iron deficiency anemia, unspecified; M19.90 Unspecified osteoarthritis, unspecified site; J30.9 Allergic rhinitis, unspecified; E83.42 Hypomagnesemia; E55.9 Vitamin D deficiency, unspecified; Z90.49 Acquired absence of other specified parts of digestive tract; Z98.890 Other specified postprocedural states; Z79.899 Other long term (current) drug therapy; Z88.0 Allergy status to penicillin; Z88.8 Allergy status to other drugs, medicaments and biological substances; Z87.891 Personal history of nicotine dependence; Z90.710 Acquired absence of both cervix and uterus
CPT/HCPCS: 25447; 76000; A9270; C1713; J0690; J2250; J2405; J2704; J3010; J7120; 01830; 99100; J3490

== ENCOUNTER 2022-07-18 10:57 | Emergency (ER) | payer MEDICARE, BC ==
[2022-07-18 11:09] VITALS: BP 136/59; PULSE 85
[2022-07-18] MEDS ORDERED: HYDROmorphone 0.5 MG/0.5 ML Syringe IM ONE (11:23)
[2022-07-18] MEDS ORDERED: Ondansetron 4 MG Tab.DIS PO ONE (11:23)
== END 2022-07-18 13:21 | disposition home or self-care (01) ==
LOC: JD.ED 10:57
DX: M54.42 Lumbago with sciatica, left side (principal); K21.9 Gastro-esophageal reflux disease without esophagitis; M10.9 Gout, unspecified; Z88.8 Allergy status to other drugs, medicaments and biological substances; Z88.0 Allergy status to penicillin; Z79.899 Other long term (current) drug therapy; X50.0XXA Overexertion from strenuous movement or load, initial encounter
CPT/HCPCS: 72100; 73502; 96372; 99283; A9270; J1170